=== PATIENT | female | born 1940 | race Caucasian/White ===

== ENCOUNTER 2017-03-11 15:41 | Outpatient (CLI) | payer MEDICARE, OTHER ==
--- NOTE | 2017-03-13 12:49 | Mammography Report ---
DIGITAL SCREENING MAMMOGRAM: 03/11/2017 CLINICAL INDICATION: A 76-year-old with family history of breast cancer, for screening. COMPARISON: 01/2016, 12/2014, 11/2013, 11/2012, 08/2011, 07/2010, 07/2009. TECHNIQUE: Routine CC and MLO projections were obtained of the breasts. FINDINGS: The breasts again demonstrate fatty replacement. Coarse, typically benign calcifications a re present. No suspicious masses, clustered microcalcifications, or regions of architectural distorti on are identified. IMPRESSION: BENIGN FINDINGS. RECOMMENDATION: ROUTINE ANNUAL SCREENING UNLESS OTHERWISE CLINICALLY INDICATED. BIRADS CATEGORY 2-BENIGN FINDINGS. STANDARD QUALIFYING STATEMENTS 1. This examination was reviewed with the aid of Computer-Aided Detection (CAD). 2. A negative or benign imaging report should not delay biopsy if clinically suspicious findings are present. Consider surgical consultation if warranted. More than 5% of cancers are not identified by i maging. 3. Dense breasts may obscure an underlying neoplasm. JOB #: [id number] EXT JOB #:[id number]
== END 2017-03-11 15:42 | disposition home or self-care (01) ==
LOC: DI 15:41
PROVIDERS: ATTEND Internal Medicine
DX: Z12.31 Encounter for screening mammogram for malignant neoplasm of breast (principal)
CPT/HCPCS: 77067

== ENCOUNTER 2017-05-17 14:16 | Emergency (ER) | payer MEDICARE, OTHER ==
--- NOTE | 2017-05-17 14:43 | ED Physician Documentation ---
History of Present Illness - Stated complaint Stated Complaint: R HAND SWOLLEN - Chief complaint Chief Complaint: Ext Problem - History obtained from History obtained from: Patient, Family - History of Present Illness Timing: How many days ago (2) Pain level max: 1 Pain level now: 1 Improved by: nothing Worsened by: nothing - Additonal information Additional information: Patient is a 76-year-old female who presents to the emergency department after falling 2 days ago, dislocating her right shoulder and sustaining a right humerus fracture. She was placed into a sling and swath. Also concern for a wrist sprain, therefore an Federico wrap was applied and then a Velcro wrist splint was applied over the Federico wrap. Now has swelling to the right hand. NVI. Review of Systems Constitutional: denies: Fever, Chills Ears: denies: Ear pain Nose: denies: Rhinorrhea / runny nose, Congestion Cardiac: denies: Chest pain / pressure Respiratory: denies: Cough GI: denies: Abdominal Pain, Nausea, Vomiting, Diarrhea Skin: denies: Rash Musculoskeletal: denies: Neck pain, Back pain Neurologic: denies: Headache PD PAST MEDICAL HISTORY - Past Medical History Past Medical History: No - Past Surgical History Past Surgical History: No - Present Medications Home Medications: Ambulatory Orders Medication Instructions Recorded Confirmed Bisacodyl [Dulcolax] 05/17/17 hydroCHLOROthiazide 25 mg PO DAILY 05/17/17 05/17/17 [Hydrochlorothiazide] - Allergies Allergies/Adverse Reactions: Allergies Allergy/AdvReac Type Severity Reaction Status Date / Time propoxyphene Allergy Unknown Verified 05/17/17 14:26 [From Darvocet-N] acetaminophen [From Tylox] AdvReac Anxiety Verified 05/17/17 14:26 codeine AdvReac Headache Verified 05/17/17 14:26 oxycodone [From Tylox] AdvReac Anxiety Verified 05/17/17 14:26 - Living Situation Living Situation: reports: With family Living Arrangement: reports: At home - Social History Does the pt have substance abuse?: No PD ED PE NORMAL - Vitals Vital signs reviewed: Yes - General General: Alert and oriented X 3, No acute distress - HEENT HEENT: Moist mucous membranes - Neck Neck: Supple, no meningeal sign - Cardiac Cardiac: RRR - Respiratory Respiratory: No respiratory distress, Clear bilaterally - Derm Derm: Warm and dry - Extremities Extremities: Other (R arm - mild ecchymosis to the R humerus. NVI. significant soft tissue edema to R hand.) - Neuro Neuro: Alert and oriented X 3 - Psych Psych: Normal mood, Normal affect Results - Vitals Vitals: Vital Signs - 24 hr 05/17/17 14:21 Temperature 36.3 C L Heart Rate 80 Respiratory 20 Rate Blood Pressure 151/77 H O2 Saturation 98 Oxygen O2 Source Room air PD MEDICAL DECISION MAKING - ED course Complexity details: re-evaluated patient, considered differential, d/w patient ED course: The Federico bandage that was underneath of the right wrist Velcro splint was removed. The Velcro wrist splint was also removed. The arm was elevated and the swelling decreased significantly after approximately 20 minutes. Her pain also decreased. She is able to move and use the arm better. Appears that the Federico bandage was occluding her circulation, will just place her back in a sling and swath for her shoulder injury and remove the Velcro splint as well as the Federico bandage from the wrist. Patient counseled regarding signs and symptoms for which I believe and urgent re-evaluation would be necessary. Patient with good understanding of and agreement to plan and is comfortable going home at this time This document was made in part using voice recognition software. While efforts are made to proofread this document, sound alike and grammatical errors may occur. No evidence of compartment syndrome Departure - Departure Disposition: 01 Home, Self Care Clinical Impression: Hand edema Condition: Good Instructions: ED Sling and Swathe Follow-Up: Sophia Blanco MD [Primary Care Provider] - your,orthopedist within 1 week [Other] Comments: Return if you worsen. Keep the splint off your wrist and the federico bandage off your wrist.
[2017-05-17 15:30] VITALS: BP 142/60
== END 2017-05-17 15:28 | disposition home or self-care (01) ==
LOC: ED 14:16
DX: R60.1 Generalized edema (principal)
CPT/HCPCS: 99282; 99283

== ENCOUNTER 2018-04-09 08:27 | Outpatient (CLI) | payer MEDICARE, OTHER ==
--- NOTE | 2018-04-10 12:40 | Mammography Report ---
Reason: BILAT SCREEN wTOMO Procedure Date: 04/09/2018 Accession Number: [id number] / [id number] Procedure: GINA - Screening Mammo w/Ang CPT Code: FULL RESULT: EXAM: Screening Mammo w/Ang DATE: 04/09/2018 8:56 AM CLINICAL HISTORY: 77-year-old female with family history of breast cancer in the daughter at age 40. TECHNIQUE: Bilateral CC and MLO views were obtained. COMPARISON: 03/11/2017, 02/26/2016, 01/10/2015, 12/15/2013. FINDINGS: The breasts demonstrate scattered fibroglandular densities bilaterally. Typically benign large rodlike calcifications are seen in the left breast and to a lesser degree in the right breast. No suspicious masses, clustered microcalcifications, or regions of architectural distortion are identified. IMPRESSION: Benign findings RECOMMENDATION: Routine annual screening unless otherwise clinically indicated. BIRADS CATEGORY 2: Benign findings STANDARD QUALIFYING STATEMENTS: 1. This examination was not reviewed with the aid of Computer-Aided Detection (CAD). 2. A negative or benign imaging report should not delay biopsy if clinically suspicious findings are present. Consider surgical consultation if warrented. More than 5% of cancers are not identified by imaging. 3. Dense breasts may obscure an underlying neoplasm. 4. This examination was reviewed with the aid of 3D breast imaging (tomosynthesis).
== END 2018-04-09 08:28 | disposition home or self-care (01) ==
LOC: DI 08:27
PROVIDERS: ATTEND Internal Medicine
DX: Z12.31 Encounter for screening mammogram for malignant neoplasm of breast (principal); Z80.3 Family history of malignant neoplasm of breast
CPT/HCPCS: 77063; 77067

== ENCOUNTER 2018-08-21 17:57 | Outpatient (CLI) | payer MEDICARE, OTHER ==
--- NOTE | 2018-08-22 18:51 | MRI Report ---
Reason: L GROIN PAIN Procedure Date: 08/21/2018 Accession Number: [id number] / [id number] Procedure: MRI - Lumbar Spine W/O CPT Code: FULL RESULT: EXAM: MRI LUMBAR SPINE WITHOUT CONTRAST EXAM DATE: 08/21/2018 08:41 PM. CLINICAL HISTORY: 78-year-old female, left groin pain COMPARISON: MR lumbar spine 11/07/2015 TECHNIQUE: Multiplanar, multisequence T1-weighted and fluid-sensitive sequences of the lumbar spine from T12 to S1 without contrast. Other: None. FINDINGS: Spinal Canal: The conus terminates at T12-L1. Again noted is fatty filum terminale (for example series 701 image 28). The conus medullaris and cauda equina are otherwise unremarkable. Alignment: Rotatory upper lumbar dextroscoliosis with the apex at the L1-L2 level, Bird angle 28 degrees. Grade 1 anterolisthesis L2 on L3 measuring 6 mm. Grade 1 anterolisthesis L3 on L4 measuring 5 mm. There is 6 mm right lateral listhesis L2 on L3. Bone Marrow: Five [id number] lumbar vertebral bodies are assumed. No gross fractures or bone lesions. No bone marrow replacement. Modic type II degenerative endplate changes at L4-L5 level. Modic type I degenerative endplate changes with endplate edema at T12-L1, L1-L2, and L3-L4 levels. Disk Levels/Facets: T12-L1: Moderate disk height loss and desiccation. Moderate diffuse disk bulge. Moderate to severe left and mild right facet arthropathy. Mild central canal narrowing. Severe left and moderate to severe right foraminal narrowing. The foraminal narrowing is slightly progressed. L1-L2: Moderate to severe disk height loss and desiccation. Moderate diffuse disk bulge with superimposed left foraminal/far lateral protrusion. Moderate to severe left and moderate right facet arthropathy. Mild central canal narrowing and moderate to severe left lateral recess narrowing with mass-effect on traversing left L2 nerve, slightly progressed. Moderate to severe left foraminal narrowing. Mild to moderate right foraminal narrowing. The foraminal narrowing is slightly progressed. L2-L3: There is disk desiccation. Large diffuse disk bulge with superimposed left subarticular/foraminal disk extrusion extending craniad approximately 11 mm increased since the prior study. Severe bilateral facet arthropathy, further progressed. Severe central canal narrowing with canal AP diameter of 5 mm, progressed. Mild right foraminal narrowing. Severe left foraminal narrowing, progressed. Moderate bilateral lateral recess narrowing with mass effect on traversing L3 nerves bilaterally. L3-L4: Moderate disk height loss and desiccation. Moderate diffuse disk bulge, increased severe bilateral facet arthropathy, further progress. Moderate to severe central canal narrowing, progressed. Moderate to severe right and moderate left foraminal narrowing, progressed. L4-L5: Severe disk height loss and desiccation. Moderate to severe right and moderate left facet arthropathy. Status post prior left hemilaminotomy. No residual central canal narrowing. Moderate bilateral foraminal narrowing, stable. L5-S1: Severe disk height loss and desiccation. Severe left and moderate to severe right facet arthropathy. Status post right hemilaminotomy. No residual central canal narrowing. Mild to moderate left and mild right foraminal narrowing. No interval progression. Musculature: Moderate to severe fatty atrophy of the paraspinal musculature appeared Other: The partially visualized retroperitoneum is unremarkable. IMPRESSION: 1. Severe multilevel degenerative spondylosis, as detailed above and summarized below. Compared to the prior study from 11/07/2015, the degenerative changes, as well as the central canal and foraminal narrowing, have significantly progressed at several levels as detailed. No evidence of acute fracture or malalignment. No cord signal abnormality. 2. Again noted is fatty filum terminale (for example series 701 image 28). 3. Rotatory upper lumbar dextroscoliosis with the apex at the L1-L2 level, Bird angle 28 degrees. Grade 1 anterolisthesis L2 on L3 measuring 6 mm. Grade 1 anterolisthesis L3 on L4 measuring 5 mm. There is 6 mm right lateral listhesis L2 on L3. 4. Modic type I degenerative endplate changes with endplate edema at T12-L1, L1-L2, and L3-L4 levels. Modic type I changes may represent a source of pain. 5. T12-L1: Mild central canal narrowing. Severe left and moderate to severe right foraminal narrowing. The foraminal narrowing is slightly progressed. 6. L1-L2: Mild central canal narrowing and moderate to severe left lateral recess narrowing with mass-effect on traversing left L2 nerve, slightly progressed. Moderate to severe left foraminal narrowing. Mild to moderate right foraminal narrowing. The foraminal narrowing is slightly progressed. Recommend correlation for left L1 and left L2 radicular symptoms. 7. L2-L3: Severe central canal narrowing with canal AP diameter of 5 mm, progressed. Mild right foraminal narrowing. Severe left foraminal narrowing, progressed. Moderate bilateral lateral recess narrowing with mass effect on traversing L3 nerves bilaterally. Recommend correlation for left L2 and bilateral L3 radicular symptoms. 8. L3-L4: Moderate to severe central canal narrowing, progressed. Moderate to severe right and moderate left foraminal narrowing, progressed. Recommend correlation for right greater than left L3 radicular symptoms. 9. L4-L5: No residual central canal narrowing. Moderate bilateral foraminal narrowing, stable. Recommend correlation for bilateral L4 radicular symptoms. 10. L5-S1: No residual central canal narrowing. Mild to moderate left and mild right foraminal narrowing. No interval progression. Comment: The following findings are so common in adults without low back pain that while we report their presence, they must be interpreted with caution and in the context of the clinical situation. (Reference Rolfk et al, Spine 2001) Prevalence of findings in patients without low back pain: Disk degeneration (any evidence): 92% Disk desiccation/T2 signal loss: 83% Disk height loss: 56% Disk bulge: 64% Disk protrusion: 32% Annular tear/high intensity zone: 38% RADIA
== END 2018-08-21 17:58 | disposition home or self-care (01) ==
LOC: DI 17:57
PROVIDERS: ATTEND Orthopaedic Surgery
DX: M51.36 Other intervertebral disc degeneration, lumbar region (principal); M48.061 Spinal stenosis, lumbar region without neurogenic claudication; M47.9 Spondylosis, unspecified; M51.26 Other intervertebral disc displacement, lumbar region; M41.9 Scoliosis, unspecified; M51.35 Other intervertebral disc degeneration, thoracolumbar region; M48.05 Spinal stenosis, thoracolumbar region
CPT/HCPCS: 72148

== ENCOUNTER 2019-06-17 07:53 | Outpatient (CLI) | payer MEDICARE, OTHER ==
--- NOTE | 2019-06-21 09:11 | Mammography Report ---
Reason: ROUTINE MAMMO Procedure Date: 06/17/2019 Accession Number: [id number] / [id number] Procedure: GINA - Screening Mammo w/Ang CPT Code: Final Report FULL RESULT: EXAM: Screening Mammo w/Ang DATE: 06/17/2019 8:35 AM CLINICAL HISTORY: Screening encounter. Family history of breast cancer in the daughter at the age of 40. TECHNIQUE: (B) - Bilateral CC, laterally exaggerated CC, MLO views were obtained. COMPARISON: 04/09/2018 through 08/03/2009. PARENCHYMAL PATTERN: (F) - The breast(s) demonstrate(s) diffuse fatty replacement. FINDINGS: There are large rodlike typically benign calcifications. There are no suspicious masses, calcifications, or areas of distortion. IMPRESSION: Benign findings. BI-RADS category 2. RECOMMENDATION: (ANNUAL) - Recommend routine annual screening mammography. BI-RADS CATEGORY: (2) - Benign Findings. STANDARD QUALIFYING STATEMENTS: 1. This examination was not reviewed with the aid of Computer-Aided Detection (CAD). 2. A negative or benign imaging report should not preclude biopsy if clinically suspicious findings are present. 3. Dense breasts may obscure an underlying neoplasm. 4. This examination was reviewed with the aid of 3D breast imaging (tomosynthesis).
== END 2019-06-17 07:54 | disposition home or self-care (01) ==
LOC: DI 07:53
DX: Z12.31 Encounter for screening mammogram for malignant neoplasm of breast (principal); Z80.3 Family history of malignant neoplasm of breast
CPT/HCPCS: 77063; 77067

== ENCOUNTER 2021-07-04 14:25 | Outpatient (CLI) | payer MEDICARE, OTHER ==
--- NOTE | 2021-07-05 08:37 | Mammography Report ---
BILATERAL DIGITAL SCREENING MAMMOGRAM 3D/2D: 07/04/2021 CLINICAL: Routine screening. Comparison is made to exams dated: 06/17/2019 mammogram, 04/09/2018 mammogram, and 03/11/2017 mammogr am - [facility]. The tissue of both breasts is predominantly fatty. There are benign calcifications in both breasts. No significant masses, calcifications, or other findings are seen in either breast. There has been no significant interval change. IMPRESSION: BENIGN There is no mammographic evidence of malignancy. A 1 year screening mammogram is recommended. This exam was interpreted at Station ID: [id number]. NOTE: For mammograms, a report in lay terms will be sent to the patient. Approximately 15% of breast malignancies will not be visualized mammographically. In the management of a palpable breast mass, a negative mammogram must not discourage biopsy of a clinically suspicious lesion. Electronically Signed By: Chaka Salas M.D. ar/penrad:07/04/2021 16:14:21 ACR BI-RADS Category 2: Benign Finding(s) 3342F PARENCHYMAL PATTERN: (F) - The breast(s) demonstrate(s) diffuse fatty replacement. BI-RADS CATEGORY: (2) - 2 RECOMMENDATION: (ANNUAL) - Recommend routine annual screening mammography. [id number] 1 year screening LATERALITY: (B)
== END 2021-07-04 14:26 | disposition home or self-care (01) ==
LOC: DI 14:25
DX: Z12.31 Encounter for screening mammogram for malignant neoplasm of breast (principal)

== ENCOUNTER 2022-06-14 08:00 | Outpatient (CLI) | payer MEDICARE, OTHER ==
[2022-06-14 16:31] LABS: BASOPHILS # (AUTO) 0.1 10^3/uL (0.0-0.1); BASOPHILS % (AUTO) 1.1 %; EOSINOPHILS # (AUTO) 0.1 10^3/uL (0.0-0.7); EOSINOPHILS % (AUTO) 2.8 %; HCT - HEMATOCRIT 42.9 % (37.0-47.0); LYMPHOCYTES # (AUTO) 1.4 10^3/uL (1.5-3.5); MEAN CORPUSCULAR HGB CONC 32.6 g/dL (32.0-36.0); MEAN CORPUSCULAR VOLUME 91.9 fL (81.0-99.0); MONOCYTES # (AUTO) 0.4 10^3/uL (0.0-1.0); MONOCYTES % (AUTO) 8.7 %; NEUTROPHILS # (AUTO) 2.6 10^3/uL (1.5-6.6); NEUTROPHILS % (AUTO) 56.2 %; PLT - PLATELET COUNT 247 10^3/uL (130-450); RED BLOOD COUNT 4.67 10^6/uL (4.20-5.40); WHITE BLOOD COUNT 4.6 x10^3/uL (4.8-10.8)
[2022-06-14 16:42] LABS: CALCIUM 9.6 mg/dL (8.5-10.3); CREATININE 0.7 mg/dL (0.4-1.0); POTASSIUM 3.6 mmol/L (3.5-5.0)
[2022-06-14 16:55] LABS: THYROID STIMULATING HORMONE 3.8 uIU/mL (0.34-5.60)
== END 2022-06-14 23:59 | disposition home or self-care (01) ==
LOC: LAB.R 08:00
PROVIDERS: ATTEND Internal Medicine
DX: I48.91 Unspecified atrial fibrillation (principal)
CPT/HCPCS: 80048; 84443; 85025

== ENCOUNTER 2022-07-02 09:25 | Outpatient (CLI) | payer MEDICARE, OTHER | END 2022-07-02 09:26 | disposition home or self-care (01) | LOC: DI 09:25 | PROVIDERS: ATTEND Internal Medicine | DX: I48.91 Unspecified atrial fibrillation (principal); I07.1 Rheumatic tricuspid insufficiency; I87.8 Other specified disorders of veins | CPT/HCPCS: 93306 ==

== ENCOUNTER 2022-07-25 10:02 | Outpatient (CLI) | payer MEDICARE, OTHER ==
--- NOTE | 2022-07-25 10:48 | SLEEP CARE CONSULTATION ---
Information from patient questionnaire entered by Hilaria Bashir. I have reviewed and concur with the information entered by Hilaria Bashir. This document represents the service I personally performed and the decisions made by me, Marly Parnell ARNP. History of Present Illness Service Date and Time: 07/25/2022 1002 Reason for Visit: New patient Chief Complaint: reports: Observed pauses in breathing Date of Onset: couple months Usual bedtime: 10PM Time it takes to fall asleep: 20MIN Snores at night: No Observed to quit breathing while asleep: No Sleeps alone due to snoring: No Number of times waking at night: 3-4 Reasons for waking at night: reports: Gasping for air, Pain, Bathroom, Other (UNKNOWN ). denies: Choking, Snoring Toss, Turn, or Twitch while sleeping: Yes (moves a lot due to getting comfortable position) Recalls having dreams: Yes Usually gets out of bed at: 630AM Feels refreshed in the morning: Yes Morning headache: No Sleepy or fatigued during the day: Yes (especially in the last 6 weeks) Ever fallen asleep while driving: Yes (drowsy driving; no accidents) Takes day naps: Yes (daily for about 30-45 minutes) Dreams during day naps: No Prior sleep studies: No Additional HPI information: I had the pleasure of seeing CESAR TERAN today regarding the possibility of her having a sleep disorder. Her current complaint is observed pauses in breathing. She states she developed atrial fibrillation in mid May 2022. She was cardioverted yesterday. She states she had some nights after the Afib was diagnosed that she was waking up struggling to breathe. She has only noted this when sleeping on her back. She was concerned that she may have sleep apnea and asked her doctor about this. Her has sleep apnea and is on a CPAP. He has told her she does not snore and he has not noted any pauses in breathing. She states she is mostly refreshed when she wakes up in the morning. She is tired through the day and will take a nap every day. She states the daytime fatigue has been worse since she was diagnosed with Afib. She hopes it improves with the cardioversion. 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 Patient is and lives in [place]. Have you smoked in the past 12 months: No Alcohol use: No Caffeine use: Yes Caffeine amount and frequency: 1 CUP MOST DAYS Family History Family history of sleep disordered breathing: No Allergies and Home Medications Known drug allergies: Yes Drug allergies reviewed: Yes (as listed in EMR) Home medication list reviewed: Yes (as listed in EMR) Review of Systems Weight loss over past 5 years: 8 lb loss recently Cardiovascular: reports: high blood pressure, irregular heart rate or pulse, leg or foot swelling Gastrointestinal: reports: heartburn, difficulty swallowing Urinary: reports: frequency Neurological: reports: gait or balance problems Psychiatric: denies: anxiety, depression Ear/Nose/Throat: reports: dry mouth/throat, tonsillectomy, wisdom teeth removed Endocrine: denies: thyroid disease Musculoskeletal: reports: joint pain, back pain Physical Exam Vital signs obtained and entered by: HILARIA Helms MA Blood Pressure: 128/84 (LEFT ARM ) Cuff size: regular Heart Rate: 64 O2 Saturation: 97 Height: 5 ft 9 in Weight: 207 lb Body Mass Index: 30.5 BMI Classification: Obese Neck circumference: 16.5 Uvula visualization: 0% Mallampati Class IV Tongue: enlarged in size with teeth mcduffie on lateral edges Tonsils: absent bilaterally Neck: normal w/o lymphadenopathy or thyromegaly Heart: regular rate and rhythm Lungs: clear bilaterally Impression and Plan 1. Suspected Obstructive Sleep Apnea-Hypopnea Syndrome, as gasping or choking in sleep, frequent awakening during the night, cognitive impairment, and excessive daytime sleepiness. Narrow oropharynx and obesity are common predisposing factors for obstructive sleep apnea-hypopnea syndrome. I recommend proceeding to polysomnography to confirm the diagnosis and to assess severity. If the patient has significant sleep disordered breathing, a manual CPAP titration study will also be performed to find the optimal treatment pressure. I informed the patient of what the sleep studies involve and after some discussion, obtained agreement to proceed. The pathophysiology of obstructive sleep apnea-hypopnea syndrome was discussed with the patient and health risks of cardiovascular and cerebrovas cular disease if not treated. Risks of drowsy driving discussed in detail and patient advised to avoid long distance driving and to stock puller at the first sign of drowsiness. Patient agreed to plan. * Schedule polysomnography * Avoid long distance driving or driving when feeling sleepy. * Avoid alcohol, sedative and muscle relaxant around bedtime. * Attempt to lose weight. * Review instructions provided by trained office staff on how to prepare for the sleep study. * Return for follow-up after sleep study completed. Counseling Topics: Weight loss health impact Visit Type: In Office Time Spent with Patient (minutes): 32 Provider Statement: I spent 100% of the Face to Face Visit with the patient with greater than 50% spent counseling the patient and coordination of care.
[2022-07-25 10:50] VITALS: BP 128/84
== END 2022-07-25 10:03 | disposition home or self-care (01) ==
LOC: SC 10:02
PROVIDERS: ATTEND Nurse Practitioner Family
DX: G47.10 Hypersomnia, unspecified (principal); G47.8 Other sleep disorders; I49.9 Cardiac arrhythmia, unspecified; I10 Essential (primary) hypertension; E66.9 Obesity, unspecified; Z68.30 Body mass index [BMI] 30.0-30.9, adult
CPT/HCPCS: 99203; G0463; 99212

== ENCOUNTER 2022-08-30 20:46 | Outpatient (CLI) | payer MEDICARE, OTHER | END 2022-08-30 20:47 | disposition home or self-care (01) | LOC: SC 20:46 | PROVIDERS: ATTEND Nurse Practitioner Family | DX: G47.33 Obstructive sleep apnea (adult) (pediatric) (principal); G47.61 Periodic limb movement disorder; E66.9 Obesity, unspecified; Z68.30 Body mass index [BMI] 30.0-30.9, adult | CPT/HCPCS: 95810 ==

== ENCOUNTER 2022-09-06 16:36 | Outpatient (CLI) | payer MEDICARE, OTHER ==
--- NOTE | 2022-09-06 16:37 | SLEEP CARE CONSULTATION ---
Information from patient questionnaire entered by Hilaria Bashir. I have reviewed and concur with the information entered by Hilaria Bashir. This document represents the service I personally performed and the decisions made by , Marly Parnell ARNP. History of Present Illness Service Date and Time: 09/06/2022 1620 Initial [place] Sleepiness Scale score: 11 (07/24/22) Current [place] Sleepiness Scale score: 9 (09/06/22) Additional HPI information: CESAR TERAN returns via video telehealth visit for follow up and results of the recently performed polysomnography. I explained the pathophysiology behind obstructive sleep apnea. We then spent quite a bit of time discussing different treatment options. For mild obstructive sleep apnea, surgery and oral appliance are alternatives to nasal CPAP therapy but in moderate or severe cases, nasal CPAP is the most effective and reliable treatment. Because apnea is primarily in supine position, then positional management therapy could be effective. Methods discussed such as positioning with pillows to prevent supine sleep. I reviewed the impact of weight changes on sleep apnea and strongly recommended losing weight. After some discussion, the patient opted to go with the nasal CPAP therapy. Nasal autoCPAP set at 4-15 cmH20 will be ordered with rationale explained. A manual titration study will be ordered if unable to find optimal pressure with office adjustments. I explained how CPAP machine works and what to expect when using the machine. Using CPAP every night in order to get used to it was emphasized. Patient advised to put CPAP mask on before getting into bed so as not to fall asleep without CPAP. To assist acclimation to CPAP use, it could also be used for a short time during day while reading or watching TV. The patient was instructed to call the CPAP supplier to discuss any mechanical problem that may occur. If the mask given is uncomfortable or is difficult to keep on through the night even with adjustment, contact the CPAP supplier as many will replace with another mask style if notified before 30 days. If snoring or perceives is not getting enough air or too much air from the machine, notify this office. Patient does not drink alcohol. Patient was cautioned about risks of drowsy driving until sleepiness symptoms resolve. Patient denies drowsy driving. Sleep Study - Results Type of Sleep Study: Polysomnography (COMPLETED 08/30/22) Prior sleep studies: No Polysomnography/Home Sleep Study results: IMPRESSION: The quality of the study is good. The patient had reduced sleep efficiency due to two prolonged awakenings during the night. The sleep architecture was abnormal for sleep fragmentation and reduced amount of time spent in slow wave sleep (N3). Respiratory monitoring showed moderate obstructive and central sleep apneahypopnea (AHI = 18.2) associated with frequent arousals, oxyhemoglobin desaturation and mild hypoxia (derik oxygen saturation of 86%). The respiratory events occurred almost exclusively during supine sleep (supine AHI = 41.6; non-supine = 3.41). Snore was infrequent and light in intensity. There was moderate periodic leg movement of sleep not contributing to the sleep fragmentation. Cardiac rhythm was normal sinus rhythm without significant arrhythmia. No abnormal behavior (parasomnia) observed during the night. Allergies and Home Medications Known drug allergies: Yes (as listed) Drug allergies reviewed: Yes Home medication list reviewed: Yes (no changes) Allergy and home medication list: Allergies propoxyphene [From Darvocet-N] Allergy (Verified 09/06/22 10:09) Unknown acetaminophen [From Tylox] Adverse Reaction (Verified 09/06/22 10:09) Anxiety codeine Adverse Reaction (Verified 09/06/22 10:09) Headache oxycodone [From Tylox] Adverse Reaction (Verified 09/06/22 10:09) Anxiety BENNZOIN Allergy (Uncoded 09/06/22 10:09) Rash Review of Systems Review of systems same as previous: Yes (no changes) Physical Exam Vital signs obtained and entered by: VIA PHONE HILARIA Helms MA Blood Pressure: 130/76 (PER PT) Height: 5 ft 9 in (PER PT) Weight: 195 lb (PER PT) Body Mass Index: 28.8 BMI Classification: Overweight Impression and Plan 1. Obstructive Sleep Apnea-Hypopnea Syndrome, moderate, with lowest oxygen saturation of 86%. Obviously this is the cause of the patients symptoms of unrefreshed sleep, and excessive daytime sleepiness. Positive pressure therapy could benefit hypertension and atrial fibrillation. As mentioned above, the patient will be started on nasal autoCPAP therapy with pressure set at 4-15 cmH2 O. A manual titration study will be completed if unable to find optimal treatment pressure with office adjustments. Compliance guidelines also reviewed. A copy of compliance guidelines will be given for reference at check out. Because the apnea is more severe supine, I instructed to avoid sleeping supine using pillow positioning until able to start CPAP use. 2. Periodic limb movement, moderate, that did not fragment patients sleep. Periodic limb movement of sleep (PLMS) is characterized by episodes of repetitive limb movements that occur during sleep and usually involve the lower limbs. The etiology is unknown. Caffeine can aggravate PLMS and should be avoided. Sleep hygiene methods can also improve sleep as well as lifestyle changes such as regular exercise. Patient was advised that no treatment is needed at this time. If symptoms increase, then further evaluation is indicated. * Nasal auto CPAP therapy, pressure at 4-15 cm H2O. * Attempt to lose weight. * Avoid alcohol consumption near bedtime. * Avoid supine sleep until using CPAP. * The patient is again cautioned about driving until sleepiness completely resolves. * Return one month after CPAP obtained. I will assess response to therapy and compliance at that time. Counseling Topics: Weight loss health impact Visit Type: Telehealth Video Video Type: Doximity Patient Location: Home Location of Provider: Office Patient agrees and consents to this telehealth visit type: Yes Patient agrees to have their insurance billed: Yes Time Spent with Patient (minutes): 27 Provider Statement: I spent 100% of the Telehealth Video Call with the patient with greater than 50% spent counseling the patient and coordination of care.
[2022-09-06 16:51] VITALS: BP 130/76
== END 2022-09-06 16:37 | disposition home or self-care (01) ==
LOC: SC 16:36
PROVIDERS: ATTEND Nurse Practitioner Family
DX: G47.33 Obstructive sleep apnea (adult) (pediatric) (principal); G47.61 Periodic limb movement disorder; E66.3 Overweight; Z68.28 Body mass index [BMI] 28.0-28.9, adult

== ENCOUNTER 2022-10-10 14:26 | Outpatient (CLI) | payer MEDICARE, OTHER ==
--- NOTE | 2022-10-10 15:11 | SLEEP CARE CONSULTATION ---
Information from patient questionnaire entered by Chayo Bashir. I have reviewed and concur with the information entered by Chayo Bashir. This document represents the service I personally performed and the decisions made by , Marly Parnell ARNP. History of Present Illness Service Date and Time: 10/10/2022 142 Previous diagnosis: Moderate, Obstructive Sleep Apnea-Hypopnea Syndrome AHI: 18.2 (in 2022) Reason for follow up: first compliance Equipment type: CPAP (RESMED Airsense 11, s/u 08/2022) Equipment obtained from: Other ([facility], got inital supplies) Mask style: Nasal (Siesta 3B) Mask brand: Resmed (has used Airfit P10) Backup mask available: Yes (other mask) Last cushion change: last night Prior sleep studies: No Type of Sleep Study: Polysomnography (COMPLETED 08/30/22) HPI additional information: CESAR TERNA was diagnosed to have moderate, AHI 18.2, obstructive sleep apnea-hypopnea syndrome and returned today for CPAP therapy first compliance follow-up. Sleep Study - Results Type of Sleep Study: Polysomnography (COMPLETED 08/30/22) Prior sleep studies: No CPAP Compliance Data - Data Reviewed with Patient Average duration of nightly device use: 5 HRS 17 MIN Compliance rate %: 70 (09/19/22-10/08/22; 19/20 days used) Current pressure setting (cmH2O): 4-15 (median 7.1, avg 10.8, max 12.1) Average residual AHI: 13.8 (unknown 7.5) Central apnea: 1.4 Obstructive apnea: 3.8 Hypopnea: 1.0 Subjective Patient concerns: reports: mask leak noise, dry mouth, nose, throat (mouth comes open). denies: aerophagia, mask discomfort, air blowing in eyes, condensation in mask/hose, nasal congestion, epistaxis Observed to snore while using device: No Current pressure setting perceived as: comfortable (but occasional feels too high) On therapy, patient: reports: other (no difference at this point). denies: drowsiness while driving Initial [place] Sleepiness Scale score: 11 (07/24/22) Current [place] Sleepiness Scale score: 8 (10/10/22) Allergies and Home Medications Known drug allergies: Yes (as listed) Drug allergies reviewed: Yes Home medication list reviewed: Yes (no changes) Allergy and home medication list: Allergies propoxyphene [From Darvocet-N] Allergy (Verified 10/09/22 14:10) Unknown acetaminophen [From Tylox] Adverse Reaction (Verified 10/09/22 14:10) Anxiety codeine Adverse Reaction (Verified 10/09/22 14:10) Headache oxycodone [From Tylox] Adverse Reaction (Verified 10/09/22 14:10) Anxiety BENNZOIN Allergy (Uncoded 10/09/22 14:10) Rash Review of Systems Review of systems same as previous: Yes (no changes) Physical Exam Vital signs obtained and entered by: CHAYO Helms MA Blood Pressure: 128/62 (LEFT ARM) Cuff size: regular Heart Rate: 71 O2 Saturation: 97 Height: 5 ft 9 in Weight: 198 lb 9.6 oz Body Mass Index: 29.3 BMI Classification: Overweight Impression and Plan 1. Obstructive Sleep Apnea-Hypopnea Syndrome, moderate, with good treatment compliance and fair apnea control with elevated residual AHI. On CPAP therapy, the patient has better sleep quality and is more rested overall. Patient has an elevated residual AHI at 13.8 with central index 1.4, obstructive index 3.8, hypopnea index 1.0 and unknown 7.8. The patients pressure will be changed to autoCPAP 7-10 cmH20 for elevation of residual AHI. Patient advised to contact me if pressure change is uncomfortable so that it can be adjusted. Goals for apnea control discussed. She was fitted to a [employer] Simplus full face, small cushion, mask and she is going to try it at home. I will add a mask fitting to her prescription today. Patient's apnea severity and rationale for treatment to reduce apnea, improve sleep quality and reduce cardiovascular and cerebrova scular events was reviewed. I also reviewed the benefit of consistent device use of CPAP for hypertension and arrhythmia (Afib). 2. Overweight, unspecified. Currently patients BMI is 29.3. Obesity increases the risk of apnea, CPAP pressure requirements and overall health risks especially cardiovascular and diabetes. Thus patient is advised to lose weight. The patient's CPAP pressure range should accommodate some weight loss. * Change auto CPAP pressure to 7-10 cmH2O * Mask fitting for full face mask * Notify me if snoring with mask or feeling that the pressure is too much or too little * Attempt to lose weight * Call this office if any problems using CPAP * Return for follow up in 1-2 months, or sooner if concerns arise Mask provided: Yes Counseling Topics: Spare mask, Weight loss health impact Visit Type: In Office Time Spent with Patient (minutes): 26 Provider Statement: I spent 100% of the Face to Face Visit with the patient with greater than 50% spent counseling the patient and coordination of care.
[2022-10-10 15:18] VITALS: BP 128/62
== END 2022-10-10 14:27 | disposition home or self-care (01) ==
LOC: SC 14:26
PROVIDERS: ATTEND Nurse Practitioner Family
DX: G47.33 Obstructive sleep apnea (adult) (pediatric) (principal); E66.3 Overweight; Z68.29 Body mass index [BMI] 29.0-29.9, adult
CPT/HCPCS: 99213; G0463; 99212

== ENCOUNTER 2022-10-31 11:29 | Outpatient (CLI) | payer MEDICARE, OTHER ==
--- NOTE | 2022-10-31 11:53 | Sleep Patient Instructions ---
Sleep Center Visit Summary - Patient Visit Information Reason for Visit: CPAP therapy followup: 1 month - Patient Instructions Additional Instructions: You were here for follow up of CPAP therapy. You will be continued on CPAP therapy with pressure changed to 8-12 cmH2O. You should follow up with sleep care in 1-2 months. You may contact us sooner for any questions or concerns. - Clinic Information Contact: [facility] [address] [place] [id number] [email or web address] T: [phone]
[2022-10-31 12:00] VITALS: BP 114/70
--- NOTE | 2022-10-31 12:00 | SLEEP CARE CONSULTATION ---
Information from patient questionnaire entered by Hilaria Bashir. I have reviewed and concur with the information entered by Hilaria Bashir. This document represents the service I personally performed and the decisions made by , Marly Parnell ARNP. History of Present Illness Service Date and Time: 10/31/2022 1129 Previous diagnosis: Moderate, Obstructive Sleep Apnea-Hypopnea Syndrome AHI: 18.2 Reason for follow up: one month (F/U ) Equipment type: CPAP (RESMED Airsense 11; s/u 08/2022) Equipment obtained from: Other ([facility]; getting supplies) Mask style: Full face Mask brand: [employer] (Shruthi) Backup mask available: Yes (other mask) Last cushion change: last night Prior sleep studies: No Type of Sleep Study: Polysomnography (COMPLETED 08/30/22) HPI additional information: CESAR TERAN was diagnosed to have moderate, AHI 18.2, obstructive sleep apnea-hypopnea syndrome and returned today for CPAP therapy one month follow-up. Sleep Study - Results Type of Sleep Study: Polysomnography (COMPLETED 08/30/22) Prior sleep studies: No CPAP Compliance Data - Data Reviewed with Patient Average duration of nightly device use: 6 HRS 2 MIN Compliance rate %: 83 (10/01/22-10/30/22; 29/30 days used) Current pressure setting (cmH2O): 7-10 (avg 10.0) Average residual AHI: 12.1 Central apnea: 3.6 Obstructive apnea: 4.2 Hypopnea: 1.7 Average large leak: 10.4 lpm Subjective Missed days of use due to: reports: mask issues Patient concerns: reports: mask discomfort (with other mask), mask leak noise (with other mask), dry mouth, nose, throat, other (events elevated). denies: aerophagia, air blowing in eyes, condensation in mask/hose, nasal congestion, epistaxis Observed to snore while using device: No Current pressure setting perceived as: comfortable On therapy, patient: reports: sleeping better, more rested overall (for last night sleep). denies: drowsiness while driving Initial [place] Sleepiness Scale score: 11 (07/24/22) Current [place] Sleepiness Scale score: 16 (10/31/22) Allergies and Home Medications Known drug allergies: Yes (as listed) Drug allergies reviewed: Yes Home medication list reviewed: Yes (no changes) Allergy and home medication list: Allergies propoxyphene [From Darvocet-N] Allergy (Verified 10/31/22 08:20) Unknown acetaminophen [From Tylox] Adverse Reaction (Verified 10/31/22 08:20) Anxiety codeine Adverse Reaction (Verified 10/31/22 08:20) Headache oxycodone [From Tylox] Adverse Reaction (Verified 10/31/22 08:20) Anxiety BENNZOIN Allergy (Uncoded 10/31/22 08:20) Rash Review of Systems Review of systems same as previous: No (Right shoulder replacement, seeing surgeon November 14) Physical Exam Vital signs obtained and entered by: HILARIA Helms MA Blood Pressure: 114/70 (LEFT ARM) Cuff size: regular Heart Rate: 62 O2 Saturation: 97 Height: 5 ft 9 in Weight: 198 lb 9.6 oz Body Mass Index: 29.3 BMI Classification: Overweight Impression and Plan 1. Obstructive Sleep Apnea-Hypopnea Syndrome, moderate, with good treatment compliance and fair apnea control with elevated residual AHI. Patient was still struggling with her mask. I had written for mask refitting at our last appointment and she was finally able to get this done through her DME supplier. She tried the new mask last night, a [employer] Shruthi fullface mask. She is enthused because it was comfortable and she slept well last night with it on. The patients pressure will be changed to autoCPAP 8-12 cmH20 for elevation of residual AHI. Patient advised to contact me if pressure change is uncomfortable so that it can be adjusted. Goals for apnea control discussed. Patient's apnea severity and rationale for treatment to reduce apnea, improve sleep quality and reduce cardiovascular and cerebrovascular events was reviewed. I also reviewed the benefit of consistent device use of CPAP for hypertension and arrhythmia. 2. Overweight, unspecified. Currently patients BMI is 29.3. Obesity increases the risk of apnea, CPAP pressure requirements and overall health risks especially cardiovascular and diabetes. Thus patient is advised to lose weight. * Change auto CPAP pressure to 8-12 cmH2O * Notify me if snoring with mask or feeling that the pressure is too much or too little * Attempt to lose weight * Call this office if any problems using CPAP * Return for follow up in 1-2 months, or sooner if concerns arise Counseling Topics: Spare mask, Weight loss health impact Visit Type: In Office Time Spent with Patient (minutes): 22 Provider Statement: I spent 100% of the Face to Face Visit with the patient with greater than 50% spent counseling the patient and coordination of care.
== END 2022-10-31 11:30 | disposition home or self-care (01) ==
LOC: SC 11:29
PROVIDERS: ATTEND Nurse Practitioner Family
DX: G47.33 Obstructive sleep apnea (adult) (pediatric) (principal); E66.3 Overweight; Z68.29 Body mass index [BMI] 29.0-29.9, adult
CPT/HCPCS: 99213; G0463; 99212

== ENCOUNTER 2022-12-06 08:14 | Outpatient (CLI) | payer MEDICARE, OTHER ==
--- NOTE | 2022-12-06 09:00 | SLEEP CARE CONSULTATION ---
Information from patient questionnaire entered by Hilaria Bashir. I have reviewed and concur with the information entered by Hilaria Bashir. This document represents the service I personally performed and the decisions made by , Marly Parnell ARNP. History of Present Illness Service Date and Time: 12/06/2022 0814 Previous diagnosis: Moderate, Obstructive Sleep Apnea-Hypopnea Syndrome AHI: 18.2 Reason for follow up: one month (F/U) Accompanied by: Spouse Equipment type: CPAP (RESMED Airsense 11; s/u 08/2022) Equipment obtained from: Other ([facility]; getting supplies) Mask style: Full face Mask brand: [email or web address] (Shruthi) Backup mask available: No (will need to keep old mask when replaced) Last cushion change: only has one Prior sleep studies: No Type of Sleep Study: Polysomnography (COMPLETED 08/30/22) HPI additional information: CESAR TERAN was diagnosed to have moderate, AHI 18.2, obstructive sleep apnea-hypopnea syndrome and returned today for CPAP therapy one month with pressure change follow-up. Sleep Study - Results Type of Sleep Study: Polysomnography (COMPLETED 08/30/22) Prior sleep studies: No CPAP Compliance Data - Data Reviewed with Patient Average duration of nightly device use: 5 HRS 38 MINS Compliance rate %: 83 (11/01/22-11/30/22) Current pressure setting (cmH2O): 8-12 (median 9.4, avg 11.6, max 11.8) Average residual AHI: 9.6 Central apnea: 2.9 Obstructive apnea: 1.9 Hypopnea: 3.4 Average large leak: 13.1 LPM Subjective Patient concerns: reports: mask leak noise, dry mouth, nose, throat, other (when pressure gets high cannot sleep). denies: aerophagia, mask discomfort, air blowing in eyes, condensation in mask/hose, nasal congestion, epistaxis Observed to snore while using device: No Current pressure setting perceived as: comfortable (but sometimes feels high) On therapy, patient: reports: sleeping better, awakening more refreshed, being more awake and alert during the day, more rested overall. denies: drowsiness while driving Initial [place] Sleepiness Scale score: 11 (07/24/22) Current [place] Sleepiness Scale score: 9 Allergies and Home Medications Known drug allergies: Yes (as listed) Drug allergies reviewed: Yes Home medication list reviewed: Yes (no changes) Allergy and home medication list: Allergies propoxyphene [From Darvocet-N] Allergy (Verified 12/05/22 10:55) Unknown acetaminophen [From Tylox] Adverse Reaction (Verified 12/05/22 10:55) Anxiety codeine Adverse Reaction (Verified 12/05/22 10:55) Headache oxycodone [From Tylox] Adverse Reaction (Verified 12/05/22 10:55) Anxiety BENNZOIN Allergy (Uncoded 12/05/22 10:55) Rash Review of Systems Review of systems same as previous: Yes (shoulder replacement January 14) Physical Exam Vital signs obtained and entered by: Marly Christensen NP Blood Pressure: 140/69 (left) Cuff size: wrist Heart Rate: 67 O2 Saturation: 98 Height: 5 ft 9 in Weight: 199 lb 12.8 oz Body Mass Index: 29.5 BMI Classification: Overweight Impression and Plan 1. Obstructive Sleep Apnea-Hypopnea Syndrome, moderate, with good treatment compliance and fair apnea control. On CPAP therapy, the patient has better sleep quality and is more rested overall. She is going in for a shoulder surgery in December and asks for help with mask that she can take on and off with one hand. I had David, lead [employer], come in and fit her to a [employer] full face mask to use temporarily. She felt the fit was good. Her current Shruthi mask cushion is a little too big. She will order more cushions for her other mask with the smaller cushion. The patients pressure will be changed to autoCPAP 10-14 cmH20 for elevation of residual AHI. Patient advised to contact me if pressure change is uncomfortable so that it can be adjusted. Goals for apnea control discussed. Patient's apnea severity and rationale for treatment to reduce apnea, improve sl eep quality and reduce cardiovascular and cerebrovascular events was reviewed. I also reviewed the benefit of consistent device use of CPAP for hypertension and arrhythmia. 2. Overweight, unspecified. Currently patients BMI is 29.5. Obesity increases the risk of apnea, CPAP pressure requirements and overall health risks especially cardiovascular and diabetes. Thus patient is advised to lose weight. * Change auto CPAP pressure to 10-14 cmH2O * Notify me if snoring with mask or feeling that the pressure is too much or too little * Attempt to lose weight * Call this office if any problems using CPAP * Return for follow up in 3 months, or sooner if concerns arise Counseling Topics: Spare mask, Weight loss health impact Visit Type: In Office Time Spent with Patient (minutes): 28 Provider Statement: I spent 100% of the Face to Face Visit with the patient with greater than 50% spent counseling the patient and coordination of care.
[2022-12-06 09:03] VITALS: BP 140/69
== END 2022-12-06 08:15 | disposition home or self-care (01) ==
LOC: SC 08:14
PROVIDERS: ATTEND Nurse Practitioner Family
DX: G47.33 Obstructive sleep apnea (adult) (pediatric) (principal); E66.3 Overweight; Z68.29 Body mass index [BMI] 29.0-29.9, adult
CPT/HCPCS: 99213; G0463; 99212

== ENCOUNTER 2022-12-13 14:50 | Outpatient (CLI) | payer MEDICARE, OTHER ==
--- NOTE | 2022-12-13 15:52 | XRAY Report ---
PROCEDURE: Knee 3 View LT INDICATIONS: KNEE PAIN LEFT TECHNIQUE: 3 views of the left knee(s) were acquired. COMPARISON: None. FINDINGS: Bones: No fractures or dislocations. No suspicious bony lesions. Tricompartmental joint space narro wing with associated osteophytosis. Chondrocalcinosis. Soft tissues: Small knee joint effusion. No suspicious soft tissue calcifications or masses. IMPRESSION: No acute bony abnormality. Mild tricompartmental osteoarthritis. Kellgren-Brandin scale of osteoarthritis: 2 Chondrocalcinosis, which could be age-related, associated with CPPD or parathyroid disorder. Reviewed by: Eduardo Carr on 12/13/2022 3:51 PM PDT Approved by: Eduardo Carr on 12/13/2022 3:51 PM PDT Station ID: [id number]
== END 2022-12-13 14:51 | disposition home or self-care (01) ==
LOC: DI 14:50
PROVIDERS: ATTEND Internal Medicine
DX: M17.12 Unilateral primary osteoarthritis, left knee (principal); M11.262 Other chondrocalcinosis, left knee

== ENCOUNTER 2023-03-07 08:26 | Outpatient (CLI) | payer MEDICARE, OTHER ==
--- NOTE | 2023-03-07 08:58 | Sleep Patient Instructions ---
Sleep Center Visit Summary - Patient Visit Information Reason for Visit: 3-month follow-up for PAP therapy - Patient Instructions Additional Instructions: You will be completing a titration sleep study in our sleep lab where you will be sleeping with the CPAP machine on and we will be adjusting your pressures to find your optimal pressure settings. Once we have your results back, we will call you and schedule a follow up to go over the results. You will be called by our office staff to schedule your follow up, but you may contact us with any questions or issue as needed. - Clinic Information Contact: [facility] [address] [place] [address] [email or web address] T: [phone]
--- NOTE | 2023-03-07 09:04 | SLEEP CARE CONSULTATION ---
Information from patient questionnaire entered by Hilaria Bashir. I have reviewed and concur with the information entered by Hilaria Bashir. This document represents the service I personally performed and the decisions made by , Marly Parnell ARNP. History of Present Illness Service Date and Time: 03/07/2023825 Previous diagnosis: Moderate, Obstructive Sleep Apnea-Hypopnea Syndrome AHI: 18.2 (08/2022) Reason for follow up: three month (F/U) Equipment type: CPAP (RESMED Airsense 11, s/u 08/2022) Equipment obtained from: Other ([facility], getting supplies) Mask style: Full face (Shruthi) Backup mask available: No (will keep old mask when replaced) Last cushion change: 2 weeks Prior sleep studies: No Type of Sleep Study: Polysomnography (COMPLETED 08/30/22) HPI additional information: CESAR TERAN was diagnosed to have moderate, AHI 18.2, obstructive sleep apnea-hypopnea syndrome and returned today for CPAP therapy three month follow- up. Sleep Study - Results Type of Sleep Study: Polysomnography (COMPLETED 08/30/22) Prior sleep studies: No CPAP Compliance Data - Data Reviewed with Patient Average duration of nightly device use: 4 hours 27 minutes Compliance rate %: 57 (89/90 days used) Current pressure setting (cmH2O): 10-14 (median 9.2, avg 10.6, max 11.2) Average residual AHI: 10.2 (unknown 7.8) Central apnea: 0.5 Obstructive apnea: 0.5 Hypopnea: 1.3 Average large leak: 38.3 L/min Subjective Patient concerns: reports: mask leak noise (leaks waking her up), condensation in mask/hose (once, wet around her face), dry mouth, nose, throat (lips stuck together, nearly every morning). denies: aerophagia, mask discomfort, air bl owing in eyes, nasal congestion, epistaxis Observed to snore while using device: No Current pressure setting perceived as: too high (waking her up) On therapy, patient: reports: sleeping better, awakening more refreshed, being more awake and alert during the day, more rested overall. denies: drowsiness while driving Initial [place] Sleepiness Scale score: 11 (07/24/22) Current [place] Sleepiness Scale score: 8 (03/07/23) Allergies and Home Medications Known drug allergies: Yes (as listed) Drug allergies reviewed: Yes Home medication list reviewed: Yes (no changes) Allergy and home medication list: Allergies propoxyphene [From Darvocet-N] Allergy (Verified 03/06/23 13:50) Unknown acetaminophen [From Tylox] Adverse Reaction (Verified 03/06/23 13:50) Anxiety codeine Adverse Reaction (Verified 03/06/23 13:50) Headache oxycodone [From Tylox] Adverse Reaction (Verified 03/06/23 13:50) Anxiety BENNZOIN Allergy (Uncoded 03/06/23 13:50) Rash Review of Systems Review of systems same as previous: No (SHOULDER REPLACEMENT 01/14/23) Physical Exam Vital signs obtained and entered by: HILARIA Helms MA Blood Pressure: 132/80 (LEFT ARM) Cuff size: regular Heart Rate: 76 O2 Saturation: 98 Height: 5 ft 9 in Weight: 198 lb 12.8 oz Body Mass Index: 29.3 BMI Classification: Overweight Impression and Plan 1. Obstructive and Central Sleep Apnea-Hypopnea Syndrome, moderate, with good treatment compliance and fair apnea control with elevated residual AHI. On CPAP therapy, the patient has better sleep quality and is more rested overall. She has had difficulty with the machine waking her up because the pressure is going so high. There is a lot of air leaks. There was one night she could not use the CPAP because the leaking was not allowing the pressure to come through the mask appropriately. She is putting the mask on every night but is still struggling with the pressure. After reviewing her therapy report she is still having elevated AHI with 7.8 unknown events noted. I reviewed my notes and saw that I had not been documenting that she is not only obstructive but central sleep apnea. Patient's pressure setting is still not optimal to control sleep apnea. I advised patient that a titration study will be next step to determine a more optimal pressure setting. They voiced understanding and agreement. She has also been waking up with a very dry mouth. She is using a fullface mask. I adjusted her humidity set up to see if this will help with dryness and also encouraged her to try a chinstrap to see if oral venting is partial because of her mouth dryness. Patient's apnea severity and rationale for treatment to reduce apnea, improve sleep quality and reduce cardiovascular and cerebrovascular events was reviewed. I also reviewed the benefit of consistent device use of CPAP for hypertension and arrhythmia. 2. Overweight, unspecified. Currently patients BMI is 29.3. Obesity increases the risk of apnea, CPAP pressure requirements and overall health risks especially cardiovascular and diabetes. Thus patient is advised to lose weight. * Titration study * Change auto CPAP pressure to 9-11 cmH2O * Notify me if snoring with mask or feeling that the pressure is too much or too little * Attempt to lose weight * Call this office if any problems using CPAP * Return for follow up after titration study, or sooner if concerns arise Counseling Topics: Spare mask, Weight loss health impact Plan: Titration study Visit Type: In Office Time Spent with Patient (minutes): 25 Provider Statement: I spent 100% of the Face to Face Visit with the patient with greater than 50% spent counseling the patient and coordination of care.
[2023-03-07 09:32] VITALS: BP 132/80; O2SAT 98
== END 2023-03-07 08:27 | disposition home or self-care (01) ==
LOC: SC 08:26
PROVIDERS: ATTEND Nurse Practitioner Family
DX: G47.33 Obstructive sleep apnea (adult) (pediatric) (principal); E66.3 Overweight; Z68.29 Body mass index [BMI] 29.0-29.9, adult
CPT/HCPCS: 99213; G0463; 99212

== ENCOUNTER 2023-03-13 13:51 | Outpatient (CLI) | payer MEDICARE, OTHER | END 2023-03-13 23:59 | disposition EMS.NT | LOC: EMS 13:51 | DX: Z03.89 Encounter for observation for other suspected diseases and conditions ruled out (principal) ==

== ENCOUNTER 2023-03-13 16:06 | Emergency (ER) | payer MEDICARE, OTHER ==
[2023-03-13 16:22] VITALS: BP 160/75; O2SAT 96
--- NOTE | 2023-03-13 16:27 | ED Physician Documentation ---
PD HPI HEAD INJURY - Stated complaint Stated Complaint: GLF/HEAD PX/HIP PX - Chief complaint Chief Complaint: Trauma Hd/Nk - History obtained from History obtained from: Patient - Additional information Additional information: 82-year-old woman who is on Eliquis for history of atrial fibrillation presents for head injury. She fell in her bathroom. It was a mechanical fall without syncope. Hit the back of her head on the wall. Also feels like she bruised her left hip which has been remotely replaced. It has dislocated before and feels nothing like that. PD PAST MEDICAL HISTORY - Past Medical History Cardiovascular: Hypertension - Past Surgical History Past Surgical History: No - Present Medications Home Medications: Ambulatory Orders Medication Instructions Recorded Confirmed hydroCHLOROthiazide 25 mg PO DAILY 05/17/17 03/07/23 [Hydrochlorothiazide] Acetaminophen [Tylenol] See Rx Instructions .ROUTE .COMPLEX 07/24/22 03/07/23 Apixaban [Eliquis] See Rx Instructions .ROUTE .COMPLEX 07/24/22 03/07/23 Losartan [Cozaar] See Rx Instructions .ROUTE .COMPLEX 07/24/22 03/07/23 Menthol [Biofreeze] See Rx Instructions .ROUTE .COMPLEX 07/24/22 03/07/23 Multivitamin See Rx Instructions .ROUTE .COMPLEX 07/24/22 03/07/23 Niacinamide See Rx Instructions .ROUTE .COMPLEX 07/24/22 03/07/23 Turmeric See Rx Instructions .ROUTE .COMPLEX 07/24/22 03/07/23 Zenith Labs See Rx Instructions .ROUTE .COMPLEX 07/24/22 03/07/23 traMADol [Ultram] See Rx Instructions .ROUTE .COMPLEX 07/24/22 03/07/23 Docusate Sodium [Dulcolax Stool See Rx Instructions .ROUTE .COMPLEX 07/25/22 03/07/23 Softener] Sotalol [Betapace] See Rx Instructions .ROUTE .COMPLEX 07/25/22 03/07/23 - Allergies Allergies/Adverse Reactions: Allergies Allergy/AdvReac Type Severity Reaction Status Date / Time propoxyphene Allergy Unknown Verified 03/13/23 16:12 [From Darvocet-N] acetaminophen [From Tylox] AdvReac Anxiety Verified 03/13/23 16:12 codeine AdvReac Headache Verified 03/13/23 16:12 oxycodone [From Tylox] AdvReac Anxiety Verified 03/13/23 16:12 BENNZOIN Allergy Rash Uncoded 03/13/23 16:12 - Social History Does the pt smoke?: No Smoking Status: Never smoker Does the pt drink ETOH?: No Does the pt have substance abuse?: No PD ED PE NORMAL - Vitals Vital signs reviewed: Yes - General General: Alert and oriented X 3, No acute distress - HEENT HEENT: PERRL, EOMI - Neck Neck: Supple, no meningeal sign, No bony TTP - Extremities Extremities: Other (Left hip nontender with painless internal and external rotation, normal gait) - Neuro Neuro: Alert and oriented X 3, Normal speech Eye Opening: Spontaneous Motor: Obeys Commands Verbal: Oriented GCS Score: 15 - Psych Psych: Normal mood, Normal affect Results - Vitals Vitals: Vital Signs - 24 hr 03/13/23 16:13 Temperature 36.5 C Heart Rate 61 Respiratory 16 Rate Blood Pressure 160/75 H O2 Saturation 96 Oxygen O2 Source Room air - Rads (name of study) CT of the head is unremarkable Relevant Findings:: Final report received, EMP independent interpretation of test Departure - Departure Disposition: 01 Home, Self Care Clinical Impression: Adequate anticoagulation on anticoagulant therapy Head injury Qualifiers: Encounter type: initial encounter Qualified Code(s): S09.90XA - Unspecified injury of head, initial encounter Condition: Good Record reviewed to determine appropriate education?: Yes Instructions: ED Head Injury Closed Forms: PCP List
--- NOTE | 2023-03-13 17:35 | CT Report ---
PROCEDURE: HEAD WO INDICATIONS: Head injury, Eliquis TECHNIQUE: Noncontrast 4.5 mm thick angled axial sections acquired from the foramen magnum to the vertex. For r adiation dose reduction, the following was used: automated exposure control, adjustment of mA and/or kV according to patient size. COMPARISON: None. FINDINGS: Image quality: Excellent. CSF spaces: Basal cisterns are patent. No extra-axial fluid collections. Ventricles are normal in size and shape. Brain: No midline shift. No intracranial masses or hemorrhage. Abreu-white matter interface is norm al. Skull and face: Calvarium and visualized facial bones are intact, without suspicious lesions. Hyper ostosis frontalis is incidentally noted, which is not frankly abnormal for a female patient of this a ge. Sinuses: Visualized sinuses and mastoids are clear. IMPRESSION: No intracranial hemorrhage is seen. No significant intracranial abnormality is seen. Reviewed by: Trace Birch MD on 03/13/2023 4:34 PM RENAN Approved by: Trace Birch MD on 03/13/2023 4:34 PM RENAN Station ID: [id number]
== END 2023-03-13 18:14 | disposition home or self-care (01) ==
LOC: ED 16:06
DX: S09.90XA Unspecified injury of head, initial encounter (principal); W19.XXXA Unspecified fall, initial encounter; Y92.002 Bathroom of unspecified non-institutional (private) residence as the place of occurrence of the external cause; I48.91 Unspecified atrial fibrillation; Z79.01 Long term (current) use of anticoagulants
CPT/HCPCS: 99283; 99284

== ENCOUNTER 2023-05-15 14:09 | Outpatient (CLI) | payer MEDICARE, OTHER ==
--- NOTE | 2023-05-15 14:33 | Sleep Patient Instructions ---
Sleep Center Visit Summary - Patient Visit Information Reason for Visit: Followup for Titration Study - Patient Instructions Additional Instructions: You were here for follow up of CPAP therapy. You will be continued on CPAP therapy with pressure at 8 cmH2O. Please let us know if the pressure change is uncomfortable and we can make further adjustments of the pressure. You should follow up with sleep care in 1-2 months. You may contact us sooner for any questions or concerns. - Clinic Information Contact: [facility] [address] [place] [id number] [email or web address] T: [phone]
--- NOTE | 2023-05-15 14:40 | SLEEP CARE CONSULTATION ---
Information from patient questionnaire entered by Hilaria Bashir. I have reviewed and concur with the information entered by Hilaria Bashir. This document represents the service I personally performed and the decisions made by , Marly Parnell ARNP. History of Present Illness Service Date and Time: 05/15/2023 1409 Initial [place] Sleepiness Scale score: 11 (07/24/22) Current [place] Sleepiness Scale score: 9 (05/15/23) Additional HPI information: CESAR TERAN returns for follow up of the sleep study with a manual CPAP titration study performed on 04/28/2023. The patient was informed of the following polysomnography findings: CPAP was initiated at 5 cmH2O and titrated up to CPAP at 9 cmH2O. CPAP at 8 cmH2O appeared to be best (AHI of 6.2 per hour on the pressure). There was supine sleep on the pressure. Oxygen saturation was minimally low. Most of the residual respiratory events were central apneas and Daniel-Quiroz respiration. The patient appeared to have tolerated positive airway pressure therapy fairly well. Her apnea was best controlled with CPAP at 8 cmH2O. CPAP therapy is, therefore, recommended at the pressure setting. Because there is a tendency for the patient to develop treatment-emergent central apneas, low pressure is recommended. AutoCPAP set between 4 and 8 cmH20 can also be tried. Sleep Study - Results Type of Sleep Study: Polysomnography (COMPLETED 08/30/22 F/U TITRATION COMPLETED 04/28/23) Prior sleep studies: No Polysomnography/Home Sleep Study results: IMPRESSION: The quality of the study is good. CPAP was initiated at 5 cmH2O and titrated up to CPAP at 9 cmH2O. CPAP at 8 cmH2O appeared to be best (AHI of 6.2 per hour on the pressure). There was supine sleep on the pressure. Oxygen saturation was minimally low. Most of the residual respiratory events were central apneas and Daniel-Quiroz respiration. The patient appeared to have tolerated positive airway pressure therapy fairly well. The patients sleep efficiency was reduced due to frequent awakenings throughout the night. The sleep architecture was abnormal for sleep fragmentation and reduced amount of time spent in REM and slow wave sleep (N3). There was severe periodic leg movement of sleep contributing to the sleep fragmentation. Cardiac rhythm was normal sinus rhythm without significant arrhythmia. No abnormal behavior (parasomnia) observed CONCLUSIONS and RECOMMENDATIONS: 1. Obstructive Sleep apnea-hypopnea (ICD-10 G47.33)., best controlled with CPAP at 8 cmH2O. CPAP therapy is, therefore, recommended at the pressure setting. Because there is a tendency for the patient to develop treatment-emergent central apneas, low pressure is recommended. AutoCPAP set between 4 and 8 cmH20 can also be tried.. Mask used was an Shruthi full face mask size XS. With BMI of 29.4 Kg/M2, weight loss is recommended. 2. 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 Clinical correlation advised. Allergies and Home Medications Known drug allergies: Yes (as listed) Drug allergies reviewed: Yes Home medication list reviewed: Yes (new med for RLS) Allergy and home medication list: Allergies propoxyphene [From Darvocet-N] Allergy (Verified 05/14/23 14:04) Unknown acetaminophen [From Tylox] Adverse Reaction (Verified 05/14/23 14:04) Anxiety codeine Adverse Reaction (Verified 05/14/23 14:04) Headache oxycodone [From Tylox] Adverse Reaction (Verified 05/14/23 14:04) Anxiety BENNZOIN Allergy (Uncoded 05/14/23 14:04) Rash Review of Systems Review of systems same as previous: No (RLS) Physical Exam Vital signs obtained and entered by: HILARIA Helms MA Blood Pressure: 122/68 (LEFT ARM) Cuff size: regular Heart Rate: 64 O2 Saturation: 97 Height: 5 ft 9 in Weight: 203 lb 9.6 oz Body Mass Index: 30.0 BMI Classification: Obese Impression and Plan 1. Obstructive Sleep Apnea-Hypopnea Syndrome, moderate. Her titration study showed best apnea control at 8 cmH2O. The patients pressure will be changed to CPAP 8 cmH20. Patient advised to contact me if pressure change is uncomfortable so that it can be adjusted. Goals for apnea control discussed. Patient's apnea severity and rationale for treatment to reduce apnea, improve sleep quality and reduce cardiovascular and cerebrovascular events was reviewed. I also reviewed the benefit of consistent device use of CPAP for hypertension and arrhythmia. 2. Periodic limb movement, severe, that did not fragment patients sleep. Periodic limb movement of sleep (PLMS) is characterized by episodes of repetitive limb movements that occur during sleep and usually involve the lower limbs. The etiology is unknown. Caffeine can aggravate PLMS and should be avoided. Sleep hygiene methods can also improve sleep as well as lifestyle changes such as regular exercise. Patient was just stared on medication for treatment of RLS and feels she is sleeping better with less jerking movements of her legs. If her symptoms increase, then further evaluation would be indicated. 3. Obesity, unspecified. Currently patients BMI is 30. Obesity increases the risk of apnea, CPAP pressure requirements and overall health risks especially cardiovascular and diabetes. Thus patient is advised to lose weight. * Change CPAP pressure to 8 cmH2O * Notify me if snoring with mask or feeling that the pressure is too much or too little * Attempt to lose weight * Call this office if any problems using CPAP * Return for follow up in 1-2 months, or sooner if concerns arise Counseling Topics: Weight loss health impact Follow up with Sleep Care in: 1-2 months Visit Type: In Office Time Spent with Patient (minutes): 21 Provider Statement: I spent 100% of the Face to Face Visit with the patient with greater than 50% spent counseling the patient and coordination of care.
[2023-05-15 14:47] VITALS: BP 122/68; O2SAT 97
== END 2023-05-15 14:10 | disposition home or self-care (01) ==
LOC: SC 14:09
PROVIDERS: ATTEND Nurse Practitioner Family
DX: G47.33 Obstructive sleep apnea (adult) (pediatric) (principal); G47.61 Periodic limb movement disorder; E66.9 Obesity, unspecified; Z68.30 Body mass index [BMI] 30.0-30.9, adult
CPT/HCPCS: 99213; G0463; 99212

== ENCOUNTER 2023-07-05 14:12 | Outpatient (CLI) | payer MEDICARE, OTHER | END 2023-07-05 14:13 | disposition EMS.NT | LOC: EMS 14:12 | DX: R53.1 Weakness (principal) ==

== ENCOUNTER 2023-07-15 11:15 | Outpatient (CLI) | payer MEDICARE, OTHER ==
--- NOTE | 2023-07-15 11:21 | Sleep Patient Instructions ---
Sleep Center Visit Summary - Patient Visit Information Reason for Visit: 2-month follow-up for PAP therapy - Patient Instructions Additional Instructions: You were here for follow up of CPAP therapy. You will be continued on CPAP therapy with pressure at 8 cmH2O. You should follow up with sleep care in 3 months. You may contact us sooner for any questions or concerns. - Clinic Information Contact: [facility] [address] [place] [address] [email or web address] T: [phone]
--- NOTE | 2023-07-15 11:28 | SLEEP CARE CONSULTATION ---
Information from patient questionnaire entered by Hilaria Bashir. I have reviewed and concur with the information entered by Hilaria Bashir. This document represents the service I personally performed and the decisions made by me, Marly Parnell ARNP. History of Present Illness Service Date and Time: 07/15/2023 1100 Previous diagnosis: Moderate, Obstructive Sleep Apnea-Hypopnea Syndrome AHI: 18.2 (08/2022) Reason for follow up: other (2MONTH F/U) Accompanied by: Spouse (Sawyer) Equipment type: CPAP (RESMED Airsense 11, s/u 08/2022) Equipment obtained from: Other ([facility], getting supplies) Mask style: Full face Mask brand: Collax (Shruthi Full, small cushion) Backup mask available: Yes Last cushion change: 2-3 weeks ago Prior sleep studies: No Type of Sleep Study: Polysomnography (COMPLETED 08/30/22 F/U TITRATION COMPLETED 04/28/23) HPI additional information: CESAR TERNA was diagnosed to have moderate, AHI 18.2, obstructive sleep apnea-hypopnea syndrome and returned today for CPAP therapy two month with pressures change follow-up. Sleep Study - Results Type of Sleep Study: Polysomnography (COMPLETED 08/30/22 F/U TITRATION COMPLETED 04/28/23) Prior sleep studies: No CPAP Compliance Data - Data Reviewed with Patient Average duration of nightly device use: 7 HRS 49 MINS Compliance rate %: 100 (05/15/23-07/10/23; 57/57 days used) Current pressure setting (cmH2O): 8 Average residual AHI: 12.6 (RERA index 3.1) Central apnea: 4.6 Obstructive apnea: 1.8 Hypopnea: 5.3 Average large leak: 10.3 L/min Subjective Patient concerns: reports: mask discomfort (causing sore upper lip), air blowing in eyes, mask leak noise, dry mouth, nose, throat (oral venting; trying a chinstrap). denies: aerophagia, condensation in mask/hose, nasal congestion, epistaxis Observed to snore while using device: No Current pressure setting perceived as: comfortable On therapy, patient: reports: sleeping better, awakening more refreshed, being more awake and alert during the day, more rested overall. denies: drowsiness while driving Initial [place] Sleepiness Scale score: 11 (07/24/22) Current [place] Sleepiness Scale score: 5 Allergies and Home Medications Known drug allergies: Yes (as listed) Drug allergies reviewed: Yes Home medication list reviewed: Yes (no changes) Allergy and home medication list: Allergies propoxyphene [From Darvocet-N] Allergy (Verified 05/15/23 14:14) Unknown acetaminophen [From Tylox] Adverse Reaction (Verified 05/15/23 14:14) Anxiety codeine Adverse Reaction (Verified 05/15/23 14:14) Headache oxycodone [From Tylox] Adverse Reaction (Verified 05/15/23 14:14) Anxiety BENNZOIN Allergy (Uncoded 05/15/23 14:14) Rash Review of Systems Review of systems same as previous: Yes (no changes) Physical Exam Vital signs obtained and entered by: Marly Christensen NP Height: 5 ft 9 in Weight: 204 lb Body Mass Index: 30.1 BMI Classification: Obese Impression and Plan 1. Obstructive Sleep Apnea-Hypopnea Syndrome, moderate, with good treatment compliance and fair apnea control with elevated residual AHI. On CPAP therapy, the patient has better sleep quality and is more rested overall. She has had some multiple issues with her headgear and chinstrap. She was fitted with a chinstrap during her titration study but it is too bulky to fit her mask over it. She received some from [facility] and is using one that she is not sure she is putting it on correctly. I fit the mask and the chinstrap on her. I encouraged her to put the chinstrap on before putting the headgear on for best fit. She gets some dry mouth because her mouth is coming open and hopefully with this adjustment the chinstrap will help to keep her lips together. We discussed using snoring strips if it is not enough. She says she has some sensitivity to tapes and will look into it as needed. Her residual AHI is still elevated but she also has a large mask leak time and elevated hypopnea index. Patient is felt that the pressure set at 8 cmH2O is much more comfortable since it cannot go up to the higher pressures. She does have significant improvement of her sleep apnea however the pressure is slightly ineffective. She does feel she has improvement of her sleep overall. I will make no changes today and follow-up with her in 3 months. Patient advised to contact me if pressure change is uncomfortable so that it can be adjusted. Goals for apnea control discussed. Patient's apnea severity and rationale for treatment to reduce apnea, improve sleep quality and reduce cardiovascular and cerebrovascular events was reviewed. I also reviewed the benefit of consistent device use of CPAP for hypertension and arrhythmia. 2. Obesity, unspecified. Currently patients BMI is 30.1. Obesity increases the risk of apnea, CPAP pressure requirements and overall health risks especially cardiovascular and diabetes. Thus patient is advised to lose weight. * Continue auto CPAP pressure at 8 cmH2O * Notify me if snoring with mask or feeling that the pressure is too much or too little * Attempt to lose weight * Call this office if any problems using CPAP * Return for follow up in 3 months, or sooner if concerns arise Counseling Topics: Spare mask, Weight loss health impact Follow up with Sleep Care in: 3 months Visit Type: In Office Time Spent with Patient (minutes): 29 Provider Statement: I spent 100% of the Face to Face Visit with the patient with greater than 50% spent counseling the patient and coordination of care.
== END 2023-07-15 11:16 | disposition home or self-care (01) ==
LOC: SC 11:15
PROVIDERS: ATTEND Nurse Practitioner Family
DX: G47.33 Obstructive sleep apnea (adult) (pediatric) (principal); E66.9 Obesity, unspecified; Z68.30 Body mass index [BMI] 30.0-30.9, adult
CPT/HCPCS: 99213; G0463; 99212

== ENCOUNTER 2023-08-15 09:22 | Outpatient (CLI) | payer MEDICARE, OTHER ==
--- NOTE | 2023-08-18 10:31 | Mammography Report ---
BILATERAL DIGITAL SCREENING MAMMOGRAM 3D/2D: 08/15/2023 CLINICAL: Routine screening. Comparison is made to exams dated: 07/04/2021 mammogram, 06/17/2019 mammogram, 04/09/2018 mammogram, mammogram, and 02/26/2016 mammogram - [facility]. Both breasts are almost entirely fatty (category a/<25% glandular tissue). There are benign calcifications in both breasts. No significant masses, calcifications, or other findings are seen in either breast. There has been no significant interval change. IMPRESSION: BENIGN There is no mammographic evidence of malignancy. A 1 year screening mammogram is recommended. Based on the Tyrer Cuzick model (a risk assessment model) the patient's lifetime risk is 0.5% and her 10 year risk is 0.0%. According to the ACR, ACS, and NCCN guidelines, an annual breast MRI exam robert g with mammogram is recommended if the patient's lifetime risk is 20% or greater. This exam was interpreted at Station ID: [id number]. NOTE: For mammograms, a report in lay terms will be sent to the patient. Approximately 15% of breast malignancies will not be visualized mammographically. In the management of a palpable breast mass, a negative mammogram must not discourage biopsy of a clinically suspicious lesion. Electronically Signed By: Godfrey luna/tayla:08/15/2023 14:45:54 ACR BI-RADS Category 2: Benign Finding(s) 3342F PARENCHYMAL PATTERN: (F) - The breast(s) demonstrate(s) diffuse fatty replacement. BI-RADS CATEGORY: (2) - 2 Mammogram [id number] 1 year screening LATERALITY: (B)
== END 2023-08-15 09:23 | disposition home or self-care (01) ==
LOC: DI 09:22
PROVIDERS: ATTEND Internal Medicine
DX: Z12.31 Encounter for screening mammogram for malignant neoplasm of breast (principal); R92.1 Mammographic calcification found on diagnostic imaging of breast

== ENCOUNTER 2023-09-05 14:51 | Emergency (ER) | payer MEDICARE, OTHER ==
--- NOTE | 2023-09-05 15:13 | ED Physician Documentation ---
History of Present Illness - Stated complaint Stated Complaint: LIGHT HEADED,HIGH HEART RATE - Chief complaint Chief Complaint: Cardiac - History obtained from History obtained from: Patient - Additonal information Additional information: She has a history of A-fib and was cardioverted about a year ago. She is maintained on Xarelto and sotalol. Starting yesterday she has been dizzy and out of sorts with rapid heart rate. She denies chest pain or trouble breathing but she is a little fatigued with it. PD PAST MEDICAL HISTORY - Past Medical History Cardiovascular: Hypertension - Past Surgical History Past Surgical History: No - Present Medications Home Medications: Ambulatory Orders Medication Instructions Recorded Confirmed hydroCHLOROthiazide 25 mg PO DAILY 05/17/17 09/05/23 [Hydrochlorothiazide] Acetaminophen [Tylenol] See Rx Instructions .ROUTE .COMPLEX 07/24/22 09/05/23 Apixaban [Eliquis] See Rx Instructions .ROUTE .COMPLEX 07/24/22 09/05/23 Losartan [Cozaar] See Rx Instructions .ROUTE .COMPLEX 07/24/22 09/05/23 Menthol [Biofreeze] See Rx Instructions .ROUTE .COMPLEX 07/24/22 09/05/23 Multivitamin See Rx Instructions .ROUTE .COMPLEX 07/24/22 09/05/23 Niacinamide See Rx Instructions .ROUTE .COMPLEX 07/24/22 09/05/23 Turmeric See Rx Instructions .ROUTE .COMPLEX 07/24/22 09/05/23 [employer] See Rx Instructions .ROUTE .COMPLEX 07/24/22 09/05/23 traMADol [Ultram] See Rx Instructions .ROUTE .COMPLEX 07/24/22 09/05/23 Docusate Sodium [Dulcolax Stool See Rx Instructions .ROUTE .COMPLEX 07/25/22 09/05/23 Softener] Sotalol [Betapace] See Rx Instructions .ROUTE .COMPLEX 07/25/22 09/05/23 - Allergies Allergies/Adverse Reactions: Allergies Allergy/AdvReac Type Severity Reaction Status Date / Time propoxyphene Allergy Unknown Verified 09/05/23 15:03 [From Darvocet-N] acetaminophen [From Tylox] AdvReac Anxiety Verified 09/05/23 15:03 codeine AdvReac Headache Verified 09/05/23 15:03 oxycodone [From Tylox] AdvReac Anxiety Verified 09/05/23 15:03 BENNZOIN Allergy Rash Uncoded 09/05/23 15:03 - Social History Does the pt smoke?: No Smoking Status: Never smoker Does the pt drink ETOH?: No Does the pt have substance abuse?: No PD ED PE NORMAL - Vitals Vital signs reviewed: Yes - General General: Alert and oriented X 3, No acute distress - Cardiac Cardiac: Other (Rapid and irregular without murmur) - Respiratory Respiratory: No respiratory distress, Clear bilaterally - Abdomen Abdomen: Non tender - Extremities Extremities: No edema - Neuro Neuro: Alert and oriented X 3 Results - Vitals Vitals: Vital Signs - 24 hr 09/05/23 09/05/23 09/05/23 14:57 15:32 15:59 Temperature 36 C L Heart Rate 113 H 124 H 120 H Respiratory 16 17 18 Rate Blood Pressure 147/105 H 132/93 H 141/89 H O2 Saturation 99 98 20 L If not protocol 0 : Oxygen Flow, liters/minute 09/05/23 09/05/23 09/05/23 16:02 16:24 16:34 Temperature Heart Rate 116 H 109 H 64 Respiratory 18 12 12 Rate Blood Pressure 135/106 H 130/95 H O2 Saturation 98 100 If not protocol : Oxygen Flow, liters/minute Oxygen O2 Source Nasal cannula - EKG (time done) 1512 EKG releavant findings:: EKG personally interpreted by author of this note. Relevant findings are: Rate: Rate (enter#) (126) Rhythm: Atrial fibrillation [place]: Normal QRS: Normal Ischemia: Normal ST segments, Q waves (v1-v2) Computer interpretation: Agree with computer 1637 EKG releavant findings:: EKG personally interpreted by author of this note. Relevant findings are: Rate: Rate (enter#) (55) Rhythm: NSR [place]: Normal Intervals: Normal [place] QRS: Low voltage Ischemia: Normal ST segments - Labs Labs: Laboratory Tests 09/05/23 09/05/23 15:26 15:26 WBC 6.1 RBC 4.27 Hgb 12.9 Hct 38.9 MCV 91.1 MCH 30.2 MCHC 33.2 RDW 14.3 Plt Count 236 MPV 10.1 Neut # (Auto) 3.4 Lymph # (Auto) 2.1 [place] # (Auto) 0.5 Eos # (Auto) 0.1 Baso # (Auto) 0.1 Absolute Nucleated RBC 0.00 Nucleated RBC % 0.0 Sodium 136 Potassium 3.5 Chloride 100 L Carbon Dioxide 30 Anion Gap 6.0 BUN 17 Creatinine 0.6 Estimated GFR (MDRD) 95 Glucose 111 H Calcium 9.5 Magnesium 1.8 Total Bilirubin 0.5 AST 16 ALT 22 Alkaline Phosphatase 75 Total Protein 6.5 Albumin 3.9 Globulin 2.6 Albumin/Globulin Ratio 1.5 Procedures - Procedural sedation Sedation prep: Informed consent, Last meal (11am), PE performed, ASA 2 - mild disease Sedation Medications: propofol (40 then 20mg IVP=total 60mg) Mallampati classification: I Patient status during sedation: Unresponsive Sedation recovery: Recovered uneventfully Time in sedation (Minutes): 15 - Cardioversion - Major 1625 Time of attempt: 16:25 Indication: Tachyarrhythmia Risks, benefits, alternatives explained to: Pt CS via: Pads, AP approach Sync: 100j Post cardioversion rhythm: NSR Performed by: ED MD LOPEZ Medical Decision Making - ED course ED course: 83-year-old woman with symptomatic atrial fibrillation. She is therapeutically anticoagulated and on sotalol. Workup demonstrates normal CBC and CMP remarkable for mild/borderline hypomagnesemia and hypokalemia of which both IV doses were ordered. She was sedated after consent and cardioverted with the initial shock putting her back into a normal sinus rhythm and recovered well. Departure - Departure Disposition: 01 Home, Self Care Clinical Impression: Atrial fibrillation Qualifiers: Atrial fibrillation type: paroxysmal Qualified Code(s): I48.0 - Paroxysmal atrial fibrillation Condition: Good Record reviewed to determine appropriate education?: Yes Instructions: ED Afib Comments: You were seen today for symptomatic atrial fibrillation. We did go ahead and electrically cardiovert you. Labs were notable for normal CBC, and CMP was notable for borderline low potassium and magnesium at 3.5 and 1.8 which we did give you IV doses of here. 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 Return for new or worsening symptoms. Continue current medications. Forms: PCP List
[2023-09-05] MEDS: METOPROLOL 5 MG/5 ML VIAL IVP STA (15:39)
[2023-09-05 15:40] LABS: BASOPHILS # (AUTO) 0.1 10^3/uL (0.0-0.1); EOSINOPHILS # (AUTO) 0.1 10^3/uL (0.0-0.7); EOSINOPHILS % (AUTO) 1.5 %; HCT - HEMATOCRIT 38.9 % (37.0-47.0); HGB - HEMOGLOBIN 12.9 g/dL (12.0-16.0); LYMPHOCYTES # (AUTO) 2.1 10^3/uL (1.5-3.5); LYMPHOCYTES % (AUTO) 33.9 %; MEAN CORPUSCULAR HEMOGLOBIN 30.2 pg (27.0-31.0); MEAN CORPUSCULAR HGB CONC 33.2 g/dL (32.0-36.0); MEAN CORPUSCULAR VOLUME 91.1 fL (81.0-99.0); MEAN PLATELET VOLUME 10.1 fL (7.9-10.8); MONOCYTES # (AUTO) 0.5 10^3/uL (0.0-1.0); NEUTROPHILS # (AUTO) 3.4 10^3/uL (1.5-6.6); NEUTROPHILS % (AUTO) 55.3 %; PLT - PLATELET COUNT 236 10^3/uL (130-450); RED BLOOD COUNT 4.27 10^6/uL (4.20-5.40); RED CELL DISTRIBUTION WIDTH 14.3 % (12.0-15.0); WHITE BLOOD COUNT 6.1 x10^3/uL (4.8-10.8)
[2023-09-05 15:42] LABS: MAGNESIUM 1.8 mg/dL (1.7-2.3)
[2023-09-05 15:47] LABS: ALBUMIN 3.9 g/dL (3.2-5.5); ALBUMIN/GLOBULIN RATIO 1.5 (1.0-2.2); BILIRUBIN,TOTAL 0.5 mg/dL (0.2-1.0); CALCIUM 9.5 mg/dL (8.5-10.3); CREATININE 0.6 mg/dL (0.6-1.3); POTASSIUM 3.5 mmol/L (3.5-4.5); TOTAL PROTEIN 6.5 g/dL (6.4-8.9)
[2023-09-05] MEDS: SODIUM CHLORIDE 0.9% 1,000 ML IV STA (16:07)
[2023-09-05] MEDS: MAGNESIUM SULFATE 2 GRAM 2 GM/50 ML BAG IV ONE (16:29)
[2023-09-05] MEDS: POTASSIUM CHLOR 10 MEQ/100 ML 10 MEQ/100 ML BAG IV STA (16:29)
[2023-09-05] MEDS: PROPOFOL 200 MG/20 ML VIAL IVP STA (16:29)
[2023-09-05 16:50] VITALS: O2SAT 98
[2023-09-05 17:57] VITALS: BP 120/86
== END 2023-09-05 17:48 | disposition home or self-care (01) ==
LOC: ED 14:51
DX: I48.0 Paroxysmal atrial fibrillation (principal); Z79.01 Long term (current) use of anticoagulants
CPT/HCPCS: 36415; 80053; 83735; 85025; 92960; 93005; 99152; 99284

== ENCOUNTER 2023-10-14 10:19 | Outpatient (CLI) | payer MEDICARE, OTHER ==
--- NOTE | 2023-10-14 11:03 | Sleep Patient Instructions ---
Sleep Center Visit Summary - Patient Visit Information Reason for Visit: 3-month follow-up - Patient Instructions Additional Instructions: You were here for follow up of CPAP therapy. You will be continued on CPAP therapy with pressure at 8 cmH2O. You should follow up with sleep care in 12 months. You may contact us sooner for any questions or concerns. - Clinic Information Contact: [facility] [address] [place] [address] [email or web address] T: [phone]
--- NOTE | 2023-10-14 11:07 | SLEEP CARE CONSULTATION ---
Information from patient questionnaire entered by Hilaria Bashir. I have reviewed and concur with the information entered by Hilaria Bashir. This document represents the service I personally performed and the decisions made by , Marly Parnell ARNP. History of Present Illness Service Date and Time: 10/14/2023 1019 Previous diagnosis: Moderate, Obstructive Sleep Apnea-Hypopnea Syndrome AHI: 18.2 (08/2022) Reason for follow up: three month (F/U) Accompanied by: Spouse (Sawyer) Equipment type: CPAP (RESMED Airsense 11, s/u 08/2022) Equipment obtained from: Other ([facility], getting supplies) Mask style: Full face (Shruthi) Backup mask available: Yes Last cushion change: 2 weeks Prior sleep studies: No Type of Sleep Study: Polysomnography (COMPLETED 08/30/22 F/U TITRATION COMPLETED 04/28/23) HPI additional information: CESAR TERAN was diagnosed to have moderate, AHI 18.2, obstructive sleep apnea-hypopnea syndrome and returned today for CPAP therapy three month follow- up. Sleep Study - Results Type of Sleep Study: Polysomnography (COMPLETED 08/30/22 F/U TITRATION COMPLETED 04/28/23) Prior sleep studies: No CPAP Compliance Data - Data Reviewed with Patient Average duration of nightly device use: 7 HRS 50 MINS Compliance rate %: 97 (07/12/23-10/09/23; 88/90 days used) Current pressure setting (cmH2O): 8 Average residual AHI: 8.7 (unknown - 1.9; RERA - 2) Central apnea: 1.9 Obstructive apnea: 1.6 Hypopnea: 3.2 Average large leak: 20.3 L/min Compliance data discussion: She is using a cloth barrier and mouth strips. Subjective Patient concerns: denies: aerophagia, mask discomfort, air blowing in eyes, mask leak noise, condensation in mask/hose, nasal congestion, dry mouth, nose, throat, epistaxis Observed to snore while using device: No Current pressure setting perceived as: comfortable On therapy, patient: reports: sleeping better, awakening more refreshed, being more awake and alert during the day, more rested overall. denies: drowsiness while driving Initial [place] Sleepiness Scale score: 11 (07/24/22) Current [place] Sleepiness Scale score: 10 (10/14/23) Allergies and Home Medications Known drug allergies: Yes (as listed) Drug allergies reviewed: Yes Home medication list reviewed: Yes (no changes) Allergy and home medication list: Allergies propoxyphene [From Darvocet-N] Allergy (Verified 10/10/23 15:38) Unknown acetaminophen [From Tylox] Adverse Reaction (Verified 10/10/23 15:38) Anxiety codeine Adverse Reaction (Verified 10/10/23 15:38) Headache oxycodone [From Tylox] Adverse Reaction (Verified 10/10/23 15:38) Anxiety BENNZOIN Allergy (Uncoded 10/10/23 15:38) Rash Review of Systems Review of systems same as previous: Yes (NO CHANGE) Physical Exam Vital signs obtained and entered by: HILARIA Helms MA Blood Pressure: 170/80 (LEFT ARM) Cuff size: regular Heart Rate: 59 O2 Saturation: 98 Height: 5 ft 9 in Weight: 206 lb 12.8 oz Body Mass Index: 30.5 BMI Classification: Obese Impression and Plan 1. Obstructive Sleep Apnea-Hypopnea Syndrome, moderate, with good treatment compliance and fair apnea control with elevated residual AHI. On CPAP therapy, the patient has better sleep quality and is more rested overall. Patient does have significant improvement of her sleep apnea but pressure setting is slightly ineffective. However, it has improved over the last 3 months on this continuous pressure. After reviewing her titration study again this pressure appears to be her most optimal setting. No changes will be initiated today. She is comfortable with her CPAP and is satisfied with current pressure settings. She is comfortable with coming back in a year for follow up. Patient's apnea severity and rationale for treatment to reduce apnea, improve sleep quality and reduce cardiovascular and cerebrovascular events was reviewed. I also reviewed the benefit of consistent device use of CPAP for hypertension, arrhythmia. 2. Obesity, unspecified. Currently patients BMI is 30.5. Obesity increases the risk of apnea, CPAP pressure requirements and overall health risks especially cardiovascular and diabetes. Thus patient is advised to lose weight. * Continue CPAP pressure at 8 cmH2O * Notify me if snoring with mask or feeling that the pressure is too much or too little * Attempt to lose weight * Call this office if any problems using CPAP * Return for follow up in 12 months, or sooner if concerns arise Counseling Topics: Weight loss health impact Follow up with Sleep Care in: 1 year Visit Type: In Office Time Spent with Patient (minutes): 20 Provider Statement: I spent 100% of the Face to Face Visit with the patient with greater than 50% spent counseling the patient and coordination of care.
[2023-10-14 11:08] VITALS: BP 170/80; O2SAT 98
== END 2023-10-14 10:20 | disposition home or self-care (01) ==
LOC: SC 10:19
PROVIDERS: ATTEND Nurse Practitioner Family
DX: G47.33 Obstructive sleep apnea (adult) (pediatric) (principal); E66.9 Obesity, unspecified; Z68.30 Body mass index [BMI] 30.0-30.9, adult
CPT/HCPCS: 99213; G0463; 99212

== ENCOUNTER 2023-11-26 10:31 | Emergency (ER) | payer MEDICARE, OTHER ==
--- NOTE | 2023-11-26 11:43 | ED Physician Documentation ---
PD HPI CHEST PAIN - Stated complaint Stated Complaint: DIZZY/HIGH HR - Chief complaint Chief Complaint: Cardiac - History obtained from History obtained from: Patient - History of Present Illness Timing - onset: How many days ago (07/01) Timing - onset during: Light activity Timing - duration: Days (07/01) Timing - details: Abrupt onset, Still present, Waxing and waning (she has felt heart rate being irregular since Friday (2 days ago) but HR has been variably fast. Has had similar with atrial fib episodes few times in the past with cardioversion x 2, last being 2 months ago here in ER.) Quality: Tightness, Other (fluttering feeling in chest) Location: Left chest Radiation: No: Neck, Back Improved by: Rest Worsened by: Exertion Associated symptoms: Feeling faint / dizzy (at times when HR faster in 160s.), Palpitations Similar symptoms before: Diagnosis (paroxysmal atrial fib.) Review of Systems Constitutional: denies: Fever, Chills Nose: denies: Rhinorrhea / runny nose, Congestion Throat: denies: Sore throat Cardiac: reports: Palpitations. denies: Chest pain / pressure, Pedal edema, Calf pain Respiratory: reports: Dyspnea. denies: Cough GI: denies: Abdominal Pain PD PAST MEDICAL HISTORY - Past Medical History Past Medical History: Yes Cardiovascular: Hypertension, Atrial fibrillation (paroxysmal) - Past Surgical History Past Surgical History: No - Present Medications Home Medications: Ambulatory Orders Medication Instructions Recorded Confirmed hydroCHLOROthiazide 25 mg PO DAILY 05/17/17 11/26/23 [Hydrochlorothiazide] Acetaminophen [Tylenol] See Rx Instructions .ROUTE .COMPLEX 07/24/22 11/26/23 Apixaban [Eliquis] See Rx Instructions .ROUTE .COMPLEX 07/24/22 11/26/23 Losartan [Cozaar] See Rx Instructions .ROUTE .COMPLEX 07/24/22 11/26/23 Menthol [Biofreeze] See Rx Instructions .ROUTE .COMPLEX 07/24/22 11/26/23 Multivitamin See Rx Instructions .ROUTE .COMPLEX 07/24/22 11/26/23 Niacinamide See Rx Instructions .ROUTE .COMPLEX 07/24/22 11/26/23 Turmeric See Rx Instructions .ROUTE .COMPLEX 07/24/22 11/26/23 Nichewith See Rx Instructions .ROUTE .COMPLEX 07/24/22 11/26/23 traMADol [Ultram] See Rx Instructions .ROUTE .COMPLEX 07/24/22 11/26/23 Docusate Sodium [Dulcolax Stool See Rx Instructions .ROUTE .COMPLEX 07/25/22 11/26/23 Softener] Sotalol [Betapace] See Rx Instructions .ROUTE .COMPLEX 07/25/22 11/26/23 - Allergies Allergies/Adverse Reactions: Allergies Allergy/AdvReac Type Severity Reaction Status Date / Time propoxyphene Allergy Unknown Verified 11/26/23 11:03 [From Darvocet-N] acetaminophen [From Tylox] AdvReac Anxiety Verified 11/26/23 11:03 codeine AdvReac Headache Verified 11/26/23 11:03 oxycodone [From Tylox] AdvReac Anxiety Verified 11/26/23 11:03 BENNZOIN Allergy Rash Uncoded 11/26/23 11:03 - Social History Does the pt smoke?: No Smoking Status: Never smoker Does the pt drink ETOH?: No Does the pt have substance abuse?: No - POLST Patient has POLST: No PD ED PE NORMAL - Vitals Vital signs reviewed: Yes - General General: Alert and oriented X 3, No acute distress, Well developed/nourished - Cardiac Cardiac: No: RRR (irregular and fast) - Respiratory Respiratory: No respiratory distress, Clear bilaterally - Abdomen Abdomen: Soft, Non tender - Derm Derm: Normal color, Warm and dry - Extremities Extremities: Normal ROM s pain, No edema, No calf tenderness / cord - Neuro Neuro: Alert and oriented X 3, No motor deficit, Normal speech Results - Vitals Vitals: Vital Signs - 24 hr 11/26/23 11/26/23 11/26/23 10:59 12:44 13:20 Temperature 36.4 C L 36.2 C L Heart Rate 58 L 121 H 117 H Respiratory 20 22 18 Rate Blood Pressure 126/74 116/92 H 116/84 H O2 Saturation 97 98 96 If not protocol : Oxygen Flow, liters/minute 11/26/23 11/26/23 11/26/23 13:25 13:30 13:35 Temperature 36.4 C L Heart Rate 113 H 54 L 56 L Respiratory 17 18 18 Rate Blood Pressure 122/76 135/67 H 139/71 H O2 Saturation 100 99 100 If not protocol 2 2 2 : Oxygen Flow, liters/minute 11/26/23 11/26/23 11/26/23 13:40 13:45 13:50 Temperature Heart Rate 55 L 56 L 55 L Respiratory 17 14 12 Rate Blood Pressure 155/79 H 134/71 H 116/73 O2 Saturation 100 100 98 If not protocol 2 : Oxygen Flow, liters/minute 11/26/23 14:53 Temperature Heart Rate 57 L Respiratory 15 Rate Blood Pressure 119/74 O2 Saturation 98 If not protocol : Oxygen Flow, liters/minute Oxygen O2 Source Room air - EKG (time done) 11:10 EKG releavant findings:: EKG personally interpreted by author of this note. Relevant findings are: Rate: Rate (enter#) (124) Rhythm: Atrial fibrillation Ischemia: Normal ST segments. No: ST elevation c/w ischemia, ST depression 13:50 EKG releavant findings:: EKG personally interpreted by author of this note. Relevant findings are: Rate: Rate (enter#) (50) Rhythm: Sinus bradycardia [place]: Normal Intervals: Normal [place] QRS: Normal Ischemia: Normal ST segments. No: ST elevation c/w ischemia, ST depression - Labs Labs: Laboratory Tests 11/26/23 11/26/23 11:50 11:50 WBC 6.6 RBC 4.47 Hgb 13.7 Hct 41.8 MCV 93.5 MCH 30.6 MCHC 32.8 RDW 14.3 Plt Count 238 MPV 9.8 Neut # (Auto) 3.7 Lymph # (Auto) 2.1 [place] # (Auto) 0.6 Eos # (Auto) 0.1 Baso # (Auto) 0.1 Absolute Nucleated RBC 0.00 Nucleated RBC % 0.0 Sodium 136 Potassium 4.0 Chloride 101 Carbon Dioxide 27 Anion Gap 8.0 BUN 19 Creatinine 0.8 Estimated GFR (MDRD) 69 L Glucose 101 Calcium 9.3 Magnesium 1.9 Total Bilirubin 0.6 AST 19 ALT 20 Alkaline Phosphatase 65 Total Protein 6.1 L Albumin 3.8 Globulin 2.3 Albumin/Globulin Ratio 1.7 Lipase 11 Procedures - Procedural sedation Sedation prep: Informed consent, Time out completed, Last meal (8 am), PE performed, ASA 2 - mild disease Sedation Medications: etomidate Mallampati classification: I Patient status during sedation: Responds to tactile, Recovered uneventfully, Needed resp assistance (brief jaw thrust airway positioning c/w her history of sleep obstruction and CPAP at night.) - Cardioversion - Major 12:55 Time of attempt: 12:55 Indication: Tachyarrhythmia Risks, benefits, alternatives explained to: Pt Prep: IV, O2, 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 ), re-evaluated patient (Given IV metoprolol with slowing to 110 range from 140s. Still atrial fib. Con sented for cardioversion with sedation. Last ate about 8 am. Opens mouth widely. ), considered differential (onset fast abfib 2 days ago that persists apparently. She is on Eluqis. Has had cardioversion twice before [facility] 2 months ago. She is hoping that again. ), d/w patient Departure - Departure Disposition: 01 Home, Self Care Clinical Impression: Anticoagulant long-term use, Paroxysmal atrial fibrillation with rapid ventricular response Condition: Stable Record reviewed to determine appropriate education?: Yes Instructions: ED Cardioversion Electrical Follow-Up: SOFI DE DIOS MD [Physician No Access] - Sophia Blanco MD [Primary Care Provider] - Comments: Continue with your usual medications. Stay well-hydrated. Contact your glaze handler and let them know of this event. See if they want to change any medicines. Forms: PCP List Discharge Date/Time: 11/26/23 14:54
[2023-11-26 12:04] LABS: BASOPHILS # (AUTO) 0.1 10^3/uL (0.0-0.1); BASOPHILS % (AUTO) 0.9 %; EOSINOPHILS # (AUTO) 0.1 10^3/uL (0.0-0.7); EOSINOPHILS % (AUTO) 1.4 %; HCT - HEMATOCRIT 41.8 % (37.0-47.0); HGB - HEMOGLOBIN 13.7 g/dL (12.0-16.0); LYMPHOCYTES # (AUTO) 2.1 10^3/uL (1.5-3.5); MEAN CORPUSCULAR HEMOGLOBIN 30.6 pg (27.0-31.0); MEAN CORPUSCULAR HGB CONC 32.8 g/dL (32.0-36.0); MEAN CORPUSCULAR VOLUME 93.5 fL (81.0-99.0); MEAN PLATELET VOLUME 9.8 fL (7.9-10.8); MONOCYTES # (AUTO) 0.6 10^3/uL (0.0-1.0); MONOCYTES % (AUTO) 9.7 %; NEUTROPHILS # (AUTO) 3.7 10^3/uL (1.5-6.6); NEUTROPHILS % (AUTO) 55.8 %; PLT - PLATELET COUNT 238 10^3/uL (130-450); RED BLOOD COUNT 4.47 10^6/uL (4.20-5.40); RED CELL DISTRIBUTION WIDTH 14.3 % (12.0-15.0); WHITE BLOOD COUNT 6.6 x10^3/uL (4.8-10.8)
[2023-11-26 12:23] LABS: MAGNESIUM 1.9 mg/dL (1.7-2.3)
[2023-11-26 12:29] LABS: ALBUMIN 3.8 g/dL (3.2-5.5); ALBUMIN/GLOBULIN RATIO 1.7 (1.0-2.2); BILIRUBIN,TOTAL 0.6 mg/dL (0.2-1.0); CALCIUM 9.3 mg/dL (8.5-10.3); CREATININE 0.8 mg/dL (0.6-1.3); TOTAL PROTEIN 6.1 g/dL (6.4-8.9)
[2023-11-26] MEDS: SODIUM CHLORIDE 0.9% 1,000 ML IV STA (12:29)
[2023-11-26] MEDS: METOPROLOL 5 MG/5 ML VIAL IVP STA (12:30)
--- NOTE | 2023-11-26 12:43 | XRAY Report ---
PROCEDURE: Chest 1V INDICATIONS: Chest pain TECHNIQUE: One view of the chest was acquired. COMPARISON: None. FINDINGS: Surgical changes and devices: Status post prior right shoulder arthroplasty. Lungs and pleura: No pleural effusions or pneumothorax. Lungs are clear. Mediastinum: Mediastinal contours appear normal. Heart size is normal. Bones and chest wall: No suspicious bony lesions. Overlying soft tissues appear unremarkable. IMPRESSION: No acute cardiopulmonary process. Reviewed by: Godfrey Lopez MD on 11/26/2023 12:42 PM PDT Approved by: Godfrey Lopez MD on 11/26/2023 12:42 PM PDT Station ID: [id number]
[2023-11-26 12:49] VITALS: O2SAT 98
[2023-11-26] MEDS: ETOMIDATE 40 MG/20 ML VIAL IVP STA (12:57)
[2023-11-26 15:05] VITALS: BP 119/74
== END 2023-11-26 14:54 | disposition home or self-care (01) ==
LOC: ED 10:31
DX: I48.0 Paroxysmal atrial fibrillation (principal); I10 Essential (primary) hypertension; Z79.01 Long term (current) use of anticoagulants; Z79.899 Other long term (current) drug therapy
CPT/HCPCS: 36415; 80053; 83690; 83735; 84484; 85025; 92960; 93005; 99152; 99284